=== PATIENT | male | born 1940 | race Caucasian/White ===

== ENCOUNTER 2023-01-07 01:12 | Inpatient (IN) | payer MEDICARE, SELFPAY ==
--- NOTE | ~2023-01-07 | XR_ITS ---
XR hip LT 1V 01/07/2023 19:02 Indication: Status post recent ORIF left hip. Abnormal alignment of the left lower extremity Procedure: AP portable view of the left hip Comparison: No prior studies for comparison. Findings: There is a comminuted proximal left femoral fracture extending from the lesser trochanter o bliquely and inferiorly. This fracture is transfixed by an intramedullary dieter with a distal interlock ing screw and 2 dynamic compression screws transfixing the left femoral neck. Impression: 1: Comminuted mildly displaced proximal left femoral fracture transfixed by 2 dynamic compression scr ews and an intramedullary dieter. Prior studies are available to assess for change in alignment post red uction. Reviewed, dictated and finalized at location A. Impression: 1: Comminuted mildly displaced proximal left femoral fracture transfixed by 2 d ynamic compression screws and an intramedullary dieter. Prior studies are availabl e to assess for change in alignment post reduction.
--- NOTE | ~2023-01-07 | CT_ITS ---
EXAMINATION: CT abdomen pelvis wo con DATE: 01/11/2023 06:43 INDICATION: Nausea and vomiting TECHNIQUE: Computed tomography (CT) of the abdomen and pelvis was performed without intravenous contr ast. The dose-length product (DLP) was 606.40 mGy-cm. Automated exposure control and iterative recons truction technique were employed. COMPARISON: None FINDINGS: There are minimal airspace opacities of the lung bases. There are pleural calcification of the left lower lobe, likely reflecting prior infection. Cardiomegaly is noted. There are bilateral gy necomastia. There is moderate distention of the stomach without focal transition point. A stone is pr esent in the nondistended gallbladder. The liver, spleen, pancreas, and adrenal glands are normal. Cy sts of the right kidney measure up to 1.5 cm. There is an 8 mm cyst of the left kidney lower pole. Th ere is irregular wall thickening of the mid transverse colon. No pathologically enlarged abdominal or pelvic lymph nodes are identified. There is no free intraperitoneal gas. A reservoir for a penile im plant is present in left pelvis. There is antegrade intramedullary dieter and interlocking intratrochant gracy screw fixation of the left femur traversing a comminuted left proximal femur fracture. There is mild lumbar spondylosis. IMPRESSION: 1. Moderate distention of the stomach without focal transition identified, likely ileus. 2. Irregular wall thickening of the transverse colon suspicious for colon cancer. Correlation with co lonoscopy is recommended. 3. Minimal airspace opacities of the lung bases, consistent with atelectasis versus pneumonia. Reviewed, dictated and finalized at location A. IMPRESSION: 1. Moderate distention of the stomach without focal transition identified, like ly ileus. 2. Irregular wall thickening of the transverse colon suspicious for colon cance r. Correlation with colonoscopy is recommended. 3. Minimal airspace opacities of the lung bases, consistent with atelectasis ve rsus pneumonia.
[2023-01-07 01:15] VITALS: BP 129/64; PULSE 78; RESP 18; TEMP 36.2; O2SAT 97
--- NOTE | 2023-01-07 01:53 | ADMGEN ---
This patient, Tonio Moreira, was admitted to 2nd Floor Room 207-2. Patient oriented to hospital policies and general routines including ID bracelet, bed and alarms, visiting hours, pain management, procedures, bathroom and other care routines, personal items, smoking policy, room service/diet, and visiting hours. Information on how to activate the Rapid Response Team has been discussed. Patient are encouraged to report perceived risks to care and to ask questions if they do not understand what they are told or what they should do.
[2023-01-07 01:57] VITALS: BMI 24.7
[2023-01-07] MEDS: ACETAMINOPHEN 500 MG TABLET BY MOUTH ×4 (03:47→20:48)
[2023-01-07 08:00] VITALS: BP 128/66; PULSE 61; RESP 16; TEMP 36; O2SAT 97
[2023-01-07] MEDS: ENOXAPARIN 40 MG/0.4 ML SYRINGE SUB-Q (09:02)
[2023-01-07] MEDS: ASPIRIN 81 MG ENTERIC TABLET PO (09:02)
[2023-01-07] MEDS: lisinopriL 20 MG TABLET PO (09:02)
[2023-01-07] MEDS: CHOLECALCIFEROL 1,000 UNITS TABLET 1000 UNITS PO (09:02)
[2023-01-07] MEDS: PANTOPRAZOLE SOD SESQUIHYDRATE 20 MG TAB PO (09:02)
[2023-01-07] MEDS: HYDROcodone/acetaminophen (*CRX) 5-325 MG TABLET 2 TAB PO ×2 (11:02→19:14)
--- NOTE | 2023-01-07 11:15 | PM.IMHP ---
H&P: HPI History of Present Illness Date/Time: 01/08/23 11:15 Chief Complaint: rehab/weakness Narrative: This is a 82-year-old male presented to outside hospital status post fall and was found to have a left intertrochanteric femur fracture. patient had repair on 12/30/2022. Patient has a past medical history of CAD status post CABG, hypertension, hyperlipidemia, GERD, dementia and hard of hearing. Patient admitted in swing bed for rehabilitation due to decreased balance decreased mobility in severe limited function endurant and/or mobility. patient does complain of pain to the left hip and yells out with movement. The patient denies SOB, CP, palpitation, extremity numbness, lightheadedness, dizziness, constipation, diarrhea, chills, or fever. Review of Systems Review of Systems: All systems reviewed & are unremarkable except as noted in HPI and below PMFSH Family History Family History (Updated 01/07/23 @ 01:56 by Alysia Nunez RN) Other Unknown family medical history Social History Social History Smoking status: Never smoker Alcohol intake: former Substance use: never Substance use type: does not use Lack of Transportation: No Lack of Food: Never True Current Housing: I Have Housing Concerned About Future Housing: No Difficulty Paying Gas/Electric Bills: No Difficulty Paying for Meds: No Currently Unemployed: No Education: Grade School Difficulty w/ Childcare or Family Care: No Spiritual care concerns: No Meds Home Medications and Allergies Home Medications Medication Instructions Recorded Confirmed Type Adult Low Dose Aspirin 81 mg PO DAILY 01/07/23 01/07/23 History acetaminophen 500 mg tablet See Rx Instructions .Route .COMPLEX 01/07/23 01/07/23 History (Acetaminophen Pain Relief) cholecalciferol (vitamin D3) 25 mcg BYMOUTH DAILY 01/07/23 01/07/23 History enoxaparin 40 mg/0.4 mL 40 mg subcut DAILY 01/07/23 01/07/23 History subcutaneous syringe (Lovenox) lisinopril 20 mg tablet (Zestril) 20 mg PO DAILY 01/07/23 01/07/23 History melatonin 3 mg BYMOUTH HS 01/07/23 01/07/23 History nitroglycerin 0.4 mg PO PRN 01/07/23 01/07/23 History simvastatin 20 mg tablet (Zocor) 40 mg PO HS 01/07/23 01/07/23 History Allergies Allergy/AdvReac Type Severity Reaction Status Date / Time Sulfa (Sulfonamide Allergy Intermediate Urticaria Verified 01/07/23 01:56 Antibiotics) Vital Signs Vital Signs - 24 hr 01/07/23 16:00 01/08/23 00:00 01/08/23 08:00 Temperature 36.4 C 36.3 C L 36.6 C Pulse Rate 79 74 171 H Respiratory Rate 16 16 Blood Pressure 146/65 H 133/59 L 118/70 Pulse Oximetry 97 98 100 Oxygen Delivery Room Air Room Air Room Air Exam Narrative: GENERAL: elderly gentleman in no apparent distress. HEAD: normocephalic, atraumatic. EYES: PERRL. Sclera clear/white. Vision is grossly intact. EARS: External ears normal, auditory canals clear and without drainage, TMs normal without perforation. Hearing grossly intact. NOSE: External nose normal with no obvious nasal discharge, nares without redness, no rhinorrhea. THROAT: Mucous membranes moist, posterior pharynx clear. NECK: Neck supple, non-tender without lymphadenopathy, masses or thyromegaly. CARDIOVASCULAR: Regular rate and rhythm without murmurs, gallops, or rubs. RESPIRATORY: Clear to auscultation. Breath sounds equal bilaterally. No wheezes, rales, or rhonchi. GASTROINTESTINAL: Abdomen soft, non-tender, nondistended. Bowel sounds are active. No hepato-splenomegaly, or palpable masses. No guarding. SKIN: Surgical sites to left thigh and hip area surgical site intact with sutures in place and eyelid covering site no signs and symptoms of infection noted , multiple scabbed over areas to the left leg. ulcer to the buttocks area refer to pictures NEURO: awake, alert, and oriented to person, There were no obvious focal neurologic abnormalities. EXTREMITIES: Normal range of motion. No edema. No calf tenderne
[2023-01-07 16:00] VITALS: BP 146/65; PULSE 79; RESP 16; TEMP 36.4; O2SAT 97
[2023-01-07] MEDS: MELATONIN 3 MG TABLET PO (20:47)
[2023-01-07] MEDS: SIMVASTATIN 10 MG TABLET 40 MG PO (20:47)
--- NOTE | 2023-01-07 22:39 | PC.NURSE ---
triangle pillow applied to interior left leg to help with internal rotation, boot on, call light on lap
[2023-01-08] VITALS: BP 133/59; PULSE 74; RESP 16; TEMP 36.3; O2SAT 98
[2023-01-08] MEDS: ACETAMINOPHEN 500 MG TABLET BY MOUTH ×6 (00:26→20:41)
[2023-01-08 08:00] VITALS: BP 118/70; PULSE 171; TEMP 36.6; O2SAT 100
[2023-01-08] MEDS: PANTOPRAZOLE SOD SESQUIHYDRATE 20 MG TAB PO (08:40)
[2023-01-08] MEDS: lisinopriL 20 MG TABLET PO (08:41)
[2023-01-08] MEDS: CHOLECALCIFEROL 1,000 UNITS TABLET 1000 UNITS PO (08:41)
[2023-01-08] MEDS: ENOXAPARIN 40 MG/0.4 ML SYRINGE SUB-Q (08:41)
[2023-01-08] MEDS: ASPIRIN 81 MG ENTERIC TABLET PO (08:41)
[2023-01-08] MEDS: traMADol HCL (*CRX) 50 MG TABLET PO (11:14)
[2023-01-08] MEDS: oxyCODONE HCL (*CRX) 10 MG TAB SR 12HR PO ×2 (13:02→20:41)
[2023-01-08 16:00] VITALS: BP 125/75; PULSE 79; RESP 18; TEMP 36.4; O2SAT 96
[2023-01-08 20:00] VITALS: PULSE 79; RESP 18; O2SAT 96
[2023-01-08] MEDS: SIMVASTATIN 10 MG TABLET 40 MG PO (20:40)
[2023-01-08] MEDS: MELATONIN 3 MG TABLET PO (20:40)
[2023-01-09] VITALS: BP 128/59; PULSE 77; RESP 16; TEMP 36.4; O2SAT 99
[2023-01-09] MEDS: ACETAMINOPHEN 500 MG TABLET BY MOUTH ×6 (00:21→20:43)
[2023-01-09] MEDS: HYDROcodone/acetaminophen (*CRX) 5-325 MG TABLET 2 TAB PO (00:21)
[2023-01-09 08:00] VITALS: BP 138/64; PULSE 82; RESP 18; TEMP 36.6; O2SAT 97
[2023-01-09] MEDS: lisinopriL 20 MG TABLET PO (08:48)
[2023-01-09] MEDS: ENOXAPARIN 40 MG/0.4 ML SYRINGE SUB-Q (08:48)
[2023-01-09] MEDS: ASPIRIN 81 MG ENTERIC TABLET PO (08:49)
[2023-01-09] MEDS: PANTOPRAZOLE SOD SESQUIHYDRATE 20 MG TAB PO (08:49)
[2023-01-09] MEDS: oxyCODONE HCL (*CRX) 10 MG TAB SR 12HR PO ×2 (08:49→20:43)
[2023-01-09] MEDS: CHOLECALCIFEROL 1,000 UNITS TABLET 1000 UNITS PO (08:49)
[2023-01-09 09:55] LABS: Hematocrit 27.4 % (37.0-46.0); Hemoglobin 8.6 g/dL (12.4-15.3); Immature Platelet Fraction Pct 2.3 % (1.0-7.0); Mean Corpuscular HGB Conc 31.4 g/dL (32.0-36.0); Mean Corpuscular Hemoglobin 29.5 pg (27.0-31.0); Mean Corpuscular Volume 93.8 fL (78.0-102.0); Mean Platelet Volume 9.9 fl (8.7-11.0); Platelet Count Result 562 K/mm3 (150-420); Red Blood Count 2.92 M/mm3 (4.70-6.10); Red Cell Distribution Width 15.4 % (11.6-14.4)
[2023-01-09 10:10] LABS: Alanine Aminotransferase 29 U/L (16-63); Albumin Level 2.1 g/dL (3.4-5.0); Alkaline Phosphatase 114 U/L (46-116); Anion Gap 5 mmol/L (8-16); Aspartate Amino Transferase 25 U/L (15-37); Blood Urea Nitrogen 28 mg/dL (7-18); Calcium 8.4 mg/dL (8.5-10.1); Carbon Dioxide 29 mmol/L (21-32); Chloride 100 mmol/L (98-108); Estimated CRCL calculation 57 ml/min; Estimated Glomerular Filt Rate > 60; Glucose 155 mg/dL (70-99); Osmolality Calculated 286 mOsm/kg (285-295); Potassium 4.8 mmol/L (3.5-5.1); Sodium 134 mmol/L (136-145); Total Protein 6.1 g/dL (6.4-8.2)
[2023-01-09 16:00] VITALS: BP 132/59; PULSE 79; RESP 18; TEMP 36.5; O2SAT 100
[2023-01-09] MEDS: MELATONIN 3 MG TABLET PO (20:43)
[2023-01-09] MEDS: SIMVASTATIN 10 MG TABLET 40 MG PO (20:43)
[2023-01-09 23:06] VITALS: BP 142/63; PULSE 84; RESP 16; TEMP 36.2; O2SAT 100
[2023-01-10] MEDS: ACETAMINOPHEN 500 MG TABLET BY MOUTH ×5 (00:13→18:00)
[2023-01-10 08:00] VITALS: BP 132/64; PULSE 88; RESP 18; TEMP 36.3; O2SAT 100
[2023-01-10] MEDS: lisinopriL 20 MG TABLET PO (09:33)
[2023-01-10] MEDS: PANTOPRAZOLE SOD SESQUIHYDRATE 20 MG TAB PO (09:33)
[2023-01-10] MEDS: CHOLECALCIFEROL 1,000 UNITS TABLET 1000 UNITS PO (09:33)
[2023-01-10] MEDS: oxyCODONE HCL (*CRX) 10 MG TAB SR 12HR PO (09:33)
[2023-01-10] MEDS: ASPIRIN 81 MG ENTERIC TABLET PO (09:33)
[2023-01-10] MEDS: ENOXAPARIN 40 MG/0.4 ML SYRINGE SUB-Q (09:34)
--- NOTE | 2023-01-10 11:45 | PC.NURSE ---
Report given to Charlette Stauffer RN for transfer of primary care nurse.
[2023-01-10 16:40] VITALS: BP 144/74; PULSE 80; RESP 18; TEMP 36.4; O2SAT 98
[2023-01-10] MEDS: ONDANSETRON HCL ODT 4 MG TABLET PO (20:30)
[2023-01-10 20:40] VITALS: BP 149/78; PULSE 80; RESP 20; TEMP 36.6; O2SAT 99
--- NOTE | 2023-01-10 20:40 | PC.NURSE ---
Nurse went to patient to give his HS meds and pt refused them saying he's nauseous. PRN Zofran given. 30 seconds later pt had 2 emesis, totaling 200ml, of mostly phlegm and a few chunks of food in it and light brown in color.
--- NOTE | 2023-01-10 21:20 | PC.NURSE ---
Patient has had 2 additional emesis of 100ml each, yellow/klein in color with a lot of phlegm in it.
[2023-01-10] MEDS: PROMETHAZINE HCL 25 MG SUPP.RECT RECTAL (21:47)
--- NOTE | 2023-01-10 23:31 | PC.NURSE ---
This nurse has asked patient multiple times if his stomach felt good enough to take his HS meds and he continues to say no. Meds returned to Pyxis except for Tylenol, which will be kept out for his next dose. Patient has not vomited any more.
--- NOTE | 2023-01-10 23:37 | PC.NURSE ---
Patient had another emesis of 250ml, yellow in color with lg amount of phlegm in it.
[2023-01-11] VITALS: BP 145/77; PULSE 100; RESP 20; TEMP 36.7; O2SAT 93
--- NOTE | 2023-01-11 01:20 | PC.NURSE ---
Patient has had no further emesis. Patient resting but refused 0100 Tylenol saying his stomach is still upset.
[2023-01-11] MEDS: PROMETHAZINE HCL 25 MG SUPP.RECT RECTAL (02:23)
--- NOTE | 2023-01-11 02:30 | PC.NURSE ---
Patient had another 50ml emesis, yellow with phlegm. Patient given another Promethazine suppository. Tolerated well. Call light in reach.
--- NOTE | 2023-01-11 02:35 | PC.NURSE ---
Patient has not had pain med since 1699 but denies pain @ this time.
--- NOTE | 2023-01-11 06:18 | PC.NURSE ---
Patient to radiology for CT of abd w/o contrast.
--- NOTE | 2023-01-11 06:21 | PC.NURSE ---
Patient has had no further emesis.
--- NOTE | 2023-01-11 06:39 | PC.NURSE ---
Patient returned from radiology. Tolerated test well.
[2023-01-11 08:00] VITALS: BP 136/62; PULSE 87; RESP 14; TEMP 36.4; O2SAT 95
[2023-01-11] MEDS: ONDANSETRON HCL ODT 4 MG TABLET PO (08:02)
[2023-01-11] MEDS: LORazepam INJ (*CRX) 2 MG/ML VIAL 1 MG IV PUSH (10:06)
--- NOTE | 2023-01-11 10:32 | PM.DS ---
DS: Admitting Diagnosis Discharge Date 01/11/23 Admitting Diagnosis rehab weakness DS: Discharge Diagnosis Discharge Diagnosis (1) Weakness: Code(s): R53.1 - Weakness Status: Acute Assessment and Plan: ? Exhibit tolerance during physical activity as evidenced by a normal fluctuation of vital signs during physical activity. ? Patient will be ability to perform required activities of daily living. ? Provide appropriate nutrition for healing and strength. ? Use appropriate to prevent falls. ? Continue physical therapy/occupational therapy. (2) HTN (hypertension): Code(s): I10 - Essential (primary) hypertension Status: Acute Assessment and Plan: continue home medication vital signs as ordered will adjust medication as needed (3) CAD (coronary artery disease): Code(s): I25.10 - Atherosclerotic heart disease of viejas coronary artery without angina pectoris Status: Acute Assessment and Plan: status post CABG continue aspirin and simvastatin (4) BPH (benign prostatic hyperplasia): Code(s): N40.0 - Benign prostatic hyperplasia without lower urinary tract symptoms Status: Acute (5) Intertrochanteric fracture of left femur: Code(s): S72.142A - Displaced intertrochanteric fracture of left femur, initial encounter for closed fracture Status: Acute Assessment and Plan: s/p repair contniue pain controll continue pt/ot (6) Ileus: Code(s): K56.7 - Ileus, unspecified Status: Acute Assessment and Plan: transfer to [place] for higher level care and consult with surgery (7) Abnormal CT scan, gastrointestinal tract: Code(s): R93.3 - Abnormal findings on diagnostic imaging of other parts of digestive tract Status: Acute Assessment and Plan: transfer to [facility] for higher level care and consult with GI DS: Summary Hospital Course Reason for hospitalization: rehab Hospital Course: ?This is a 82-year-old male presented to outside hospital status post fall and was found to have a left intertrochanteric femur fracture. patient had repair on 12/30/2022.? Patient has a past medical history of CAD status post CABG, hypertension, hyperlipidemia, GERD, dementia and hard of hearing. Patient admitted in swing bed for rehabilitation due to decreased balance decreased mobility in severe limited function endurant and/or mobility. receive that patient had nausea vomiting throughout the night with no relief with anti emesis medication CT of the abdomen indicate a possible ileus and a mass in the colon which was suspicious of cancer. patient transferred to [facility] for a consult with GI and surgery Time Spent with Patient Time attestation: Total time spent providing and/or coordinating discharge services: Exam Narrative: GENERAL: elderly gentleman in no apparent distress. HEAD: normocephalic, atraumatic. EYES: PERRL. Sclera clear/white. Vision is grossly intact. EARS: External ears normal, auditory canals clear and without drainage, TMs normal without perforation. Hearing grossly intact. NOSE: External nose normal with no obvious nasal discharge, nares without redness, no rhinorrhea. THROAT: Mucous membranes moist, posterior pharynx clear. NECK: Neck supple, non-tender without lymphadenopathy, masses or thyromegaly. CARDIOVASCULAR: Regular rate and rhythm without murmurs, gallops, or rubs. RESPIRATORY: Clear to auscultation. Breath sounds equal bilaterally. No wheezes, rales, or rhonchi. GASTROINTESTINAL: Abdomen soft, non-tender, nondistended. Bowel sounds are active. No hepato-splenomegaly, or palpable masses. No guarding. SKIN: Surgical sites to left thigh and hip area surgical site intact with sutures in place and eyelid covering site no signs and symptoms of infection noted , multiple scabbed over areas to the left leg. ulcer to the buttocks area refer to pictures NEURO: awake, alert, a
--- NOTE | 2023-01-11 10:42 | PC.NURSE ---
RN spoke with Davon Moreira regarding the pt's need to transfer to a higher level of care. Pt has developed an Ileus. Permission was granted.
--- NOTE | 2023-01-11 10:49 | PC.NURSE ---
Pt refuses NG tube at this time.
--- NOTE | 2023-01-11 11:00 | PC.NURSE ---
Patient transferring to [facility] due to ileus/Gastro consult. Accepted by dr. Sheriff. Contacted [facility], no rigs available for transfer. [facility] contacted. Transfer paged out, waiting for ambulance to arrive.
[2023-01-11 11:20] LABS: Hematocrit 26.7 % (37.0-46.0); Hemoglobin 8.7 g/dL (12.4-15.3); Mean Corpuscular HGB Conc 32.6 g/dL (32.0-36.0); Mean Corpuscular Hemoglobin 29.9 pg (27.0-31.0); Mean Corpuscular Volume 91.8 fL (78.0-102.0); Mean Platelet Volume 9.3 fl (8.7-11.0); Platelet Count Result 514 K/mm3 (150-420); Red Blood Count 2.91 M/mm3 (4.70-6.10); Red Cell Distribution Width 15.7 % (11.6-14.4)
[2023-01-11 11:28] LABS: White Blood Count 22.7 K/mm3 (4.8-10.8)
[2023-01-11 11:42] LABS: Alanine Aminotransferase 30 U/L (16-63); Albumin Level 2.1 g/dL (3.4-5.0); Alkaline Phosphatase 132 U/L (46-116); Anion Gap 5 mmol/L (8-16); Aspartate Amino Transferase 26 U/L (15-37); Bilirubin,Total 1.2 mg/dL (0.00-1.00); Blood Urea Nitrogen 34 mg/dL (7-18); Calcium 8.4 mg/dL (8.5-10.1); Carbon Dioxide 32 mmol/L (21-32); Chloride 100 mmol/L (98-108); Estimated CRCL calculation 63 ml/min; Estimated Glomerular Filt Rate > 60; Glucose 147 mg/dL (70-99); Osmolality Calculated 294 mOsm/kg (285-295); Potassium 4.5 mmol/L (3.5-5.1); Sodium 137 mmol/L (136-145); Total Protein 6.1 g/dL (6.4-8.2)
--- NOTE | 2023-01-11 11:44 | PC.NURSE ---
Report called to [facility]. Report given to Suellen BROOKS. Pt transported with all his belongings by [facility] ambulance.
== END 2023-01-11 11:30 | disposition short-term general hospital (02) | DRG 560 ==
PROVIDERS: Nurse Practitioner; Admitting Provider Internal Medicine; Visit Provider Internal Medicine
DX: S72.142D Displaced intertrochanteric fracture of left femur, subsequent encounter for closed fracture with routine healing (principal); K56.7 Ileus, unspecified; W19.XXXD Unspecified fall, subsequent encounter; I25.10 Atherosclerotic heart disease of native coronary artery without angina pectoris; I10 Essential (primary) hypertension; E78.5 Hyperlipidemia, unspecified; K21.9 Gastro-esophageal reflux disease without esophagitis; N40.0 Benign prostatic hyperplasia without lower urinary tract symptoms; R93.3 Abnormal findings on diagnostic imaging of other parts of digestive tract; F03.90 Unspecified dementia, unspecified severity, without behavioral disturbance, psychotic disturbance, mood disturbance, and anxiety; Z95.1 Presence of aortocoronary bypass graft; Z79.82 Long term (current) use of aspirin
CPT/HCPCS: 36415; 73501; 74176; 80053; 85027; 85055; 97110; 97162; 97165; 97530; 97535; A9270; J1650; J2060

== ENCOUNTER 2023-01-11 12:06 | Observation (INO) | payer MEDICARE, SELFPAY ==
--- NOTE | ~2023-01-11 | NM_ITS ---
EXAM: NM gastric emptying study DATE: 01/15/2023 14:48 INDICATION: Gastric retention. TECHNIQUE: A gastric emptying study was performed using the methodology of Prabhakar LIRA, et al. J Nucl Med 2007; 48:568-572. The patient was given a meal consisting of 2 scrambled eggs labeled with 0.972 mCi Tc-99m sulfur colloid, 2 slices of toast, two packages of jam, and approximately 120 mL of water . Simultaneous anterior and posterior 1-min images of the abdomen were obtained with the patient supi ne at multiple time points over a total period of 4 hours. The geometric mean of anterior and posteri or views was determined, and the percentage retention was calculated for each time point. COMPARISON: CT abdomen pelvis 01/11/2023 FINDINGS: Gastric retention of the radiotracer-labeled meal was 70% and 4% at the 90 minute and 4-ho ur time points, respectively. With this technique, apparent rapid gastric emptying is suggested by <3 0% gastric retention at 1 hour. Delayed gastric emptying is defined by gastric retention of >90% at 1 hour, >60% retention at 2 hours, or >10% retention at 4 hours. IMPRESSION: 1. Normal gastric emptying. Reviewed, dictated and finalized at location E. IMPRESSION: 1. Normal gastric emptying.
--- NOTE | ~2023-01-11 | XR_ITS ---
MODIFIED ESOPHAGRAM HISTORY: Dysphagia. TECHNIQUE: Modified barium esophagram was performed on 01/13/2023. I administered fluoroscopy and perf ormed the exam with speech pathologist. Patient was seated for lateral fluoroscopic imaging for jesus stion of thin liquids, pudding, solids and quantified amounts, followed by thin liquids in uncontroll ed amounts. This was recorded on tape. A single fluoroscopic spot image was also recorded. The DAP fo r this procedure was 1.129 Gycm2. The amount of fluoroscopy time used during this procedure was 1.8 m inutes. FINDINGS: Oral stage: Adequate function. Pharyngeal stage: Pharyngeal dysphagia with reduced tongue base retraction, laryngeal elevation and a bduction resulting in both vallecular and piriform sinus residue. There was laryngeal penetration and aspiration with uncontrolled thin liquids with a straw which elicited a cough reflex. Cervical/esophageal stage: Adequate function. IMPRESSION: Pharyngeal dysphagia with laryngeal penetration and aspiration with uncontrolled thin liq uids. Please correlate with speech pathologist findings and specific feeding recommendations. Reviewed, dictated and finalized at location A. IMPRESSION: Pharyngeal dysphagia with laryngeal penetration and aspiration with uncontrolled thin liquids. Please correlate with speech pathologist findings and specific feeding recommendations.
--- NOTE | ~2023-01-11 | XR_ITS ---
EXAMINATION: XR chest 1V portable DATE: 01/11/2023 19:55 INDICATION: Cough. TECHNIQUE: A single frontal view of the chest was obtained. COMPARISON: CT abdomen and pelvis 01/11/2023 FINDINGS: There are airspace opacities in the lower lung zones, left worse than right. No pleural eff usion or pneumothorax. The heart size is normal. Median sternotomy wires and mediastinal surgical cli ps are seen, likely from prior coronary artery bypass grafting. There are multiple old healed right r ib fractures. IMPRESSION: 1. Airspace opacities in the lower lung zones, left worse than right, consistent with atelectasis/sca rring versus pneumonia. Reviewed, dictated and finalized at location A. IMPRESSION: 1. Airspace opacities in the lower lung zones, left worse than right, consisten t with atelectasis/scarring versus pneumonia.
--- NOTE | 2023-01-11 12:18 | ADMGEN ---
This patient, NICOLAS MEAD, was admitted to 3 [facility] Surg Room 315-02. Patient/family oriented to hospital policies and general routines including ID bracelet, bed and alarms, visiting hours, pain management, procedures, bathroom and other care routines, personal items, smoking policy, room service/diet, and visiting hours. Information on how to activate the Rapid Response Team has been discussed. Patient/Family are encouraged to report perceived risks to care and to ask questions if they do not understand what they are told or what they should do.
--- NOTE | 2023-01-11 12:45 | PM.IMHP ---
H&P: HPI History of Present Illness Date/Time: 01/11/23 12:45 Chief Complaint: Ileus. Narrative: This is an 82-year-old male with history of dementia, coronary artery disease, hypertension, and hyperlipidemia who is being directly admitted to the medical floor from a swing bed at the [facility] for evaluation after he was found to have an ileus on CT. He seems to have pretty significant short-term memory loss and he has not a reliable historian and as such some of the following history is supplemented via a review of his electronic medical records as well as discussions with his grandson, Davon, who is at bedside with the patient's permission. The patient lives in his own home with his dog Neal in [facility]. He ambulates with what sounds like a Rollator and grandson mentions that he tends to keep it far out in front of him and occasionally loses his balance. On December 29 he had a fall and sustained a left inter trochanteric hip fracture which was repaired at [facility] the following day. He was discharged to a swing bed in [place] for rehab. Last evening he began complaining of nausea and he had multiple episodes of emesis overnight, receiving no relief with antiemetics. CT of the abdomen/pelvis showed moderate distention of the stomach without focal transition identified, likely an ileus. Incidentally an irregular wall thickening of the transverse colon was noted to be suspicious for colon cancer and transfer was initiated for GI consultation for possible colonoscopy. At the time my evaluation he does not remember being up most of the night with nausea and vomiting and he has no complaints of abdominal discomfort or nausea at this time. He has not vomited since arrival to [place]. He also denies vertigo, lightheadedness, dizziness, fever, chills, sweats, cold and flu symptoms, chest and pleuritic pain, sensations of racing heart, palpitations, shortness of breath, diarrhea, and dysuria. He denies hematochezia and melena. Review of Systems Review of Systems: Twelve systems were reviewed but are limited due to his significant short-term memory loss. He had no complaints and stated no to every question asked except as detailed in HPI. [facility] Past Medical History Medical History (Updated 01/11/23 @ 19:45 by Kaila Toussaint PA-C) Benign prostatic hyperplasia Coronary artery disease Dementia Gastroesophageal reflux disease Hyperlipidemia Hypertension Urinary incontinence Surgical History Surgical History (Updated 01/11/23 @ 12:52 by Kaila Toussaint PA-C) History of appendectomy History of coronary artery bypass graft History of open reduction and internal fixation (ORIF) procedure (12/30/22) Repair left hip fracture. Family History Family History (Updated 01/11/23 @ 19:34 by Kaila Toussaint PA-C) Son Cancer Social History Social History (Updated 01/11/23 @ 19:35 by Kaila Toussaint PA-C) Social History: Surrogate medical decision maker: radha Combs. Code status: Full code. Smoking packs per day: 1 Smoking cigarettes per day: 20.0 Years smoked: 30 Smoking pack-years: 30.00 Smoking status: Never smoker Alcohol intake: never Substance use: never Substance use type: does not use Lack of Transportation: No Lack of Food: Never True Current Housing: I Have Housing Concerned About Future Housing: No Difficulty Paying Gas/Electric Bills: No Difficulty Paying for Meds: No Currently Unemployed: No Education: High School Diploma/GED Difficulty w/ Childcare or Family Care: No Additional living arrangements comments: Lives in [place] with his dog, Neal. 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 Spiritual care concerns: No Meds Home Medications and Allergies Home Medications Medication Instructions Recorded Confirmed Type Adult Low Dose Aspirin 81 mg PO DAILY 01/07/23
[2023-01-11 12:46] VITALS: BP 127/50; PULSE 96; RESP 24; TEMP 36.3; O2SAT 97; BMI 26.2
[2023-01-11 13:01] VITALS: O2SAT 95
[2023-01-11 13:23] LABS: Basophils Absolute Auto 0.1 K/mm3 (0.0-0.1); Basophils Percent Auto 0.3 % (0.2-1.2); Hemoglobin 8.8 g/dL (14.0-18.0); Immature Granulocyte Absolute 0.15 K/mm3 (0.00-0.031); Immature Granulocyte Percent A 0.7 % (0-0.5); Lymphocytes Absolute Auto 1.42 K/mm3 (0.9-3.2); Lymphocytes Percent Auto 6.3 % (18.3-44.2); Mean Corpuscular HGB Conc 31.4 g/dl (32-36); Mean Corpuscular Hemoglobin 29.6 pg (26-34); Mean Corpuscular Volume 94.3 fl (80-100); Mean Platelet Volume 9.8 fl (7.4-10.4); Monocytes Absolute Auto 0.7 K/mm3 (0.1-0.6); Neutrophils Absolute Auto 20.1 K/mm3 (1.3-6.7); Neutrophils Percent Auto 89.7 % (45.5-73.1); Platelet Count Result 556 k/mm3 (150-375); Red Blood Count 2.97 M/mm3 (4.6-6.20); White Blood Count 22.4 K/mm3 (4.5-10.0)
[2023-01-11 13:45] LABS: Lactic Acid Reflex 1.7 mmol/L (0.7-2.0)
[2023-01-11 13:58] LABS: Alanine Aminotransferase 32 U/L (6-50); Albumin Level 2.9 g/dL (3.5-5.1); Alkaline Phosphatase 132 U/L (38-126); Anion Gap 3 mmol/L (8-16); Aspartate Amino Transferase 35 U/L (17-59); Bilirubin,Total 1.4 mg/dL (0.2-1.3); Blood Urea Nitrogen 35 mg/dL (9-20); Carbon Dioxide 30 mmol/L (22-30); Chloride 99 mmol/L (98-107); Glucose 148 mg/dL (65-110); Potassium 4.5 mmol/L (3.4-5.0); Sodium 132 mmol/L (137-145)
[2023-01-11 14:00] VITALS: BP 136/52; PULSE 89; RESP 20; TEMP 36.1; O2SAT 96
[2023-01-11 14:07] LABS: Estimated CRCL calculation 80 ml/min; Estimated Glomerular Filt Rate > 60
[2023-01-11 15:01] LABS: CRP 5.8 mg/dL (<1.0)
[2023-01-11 15:15] LABS: Procalcitonin 0.1 ng/mL
[2023-01-11] MEDS: ENOXAPARIN 40 MG/0.4 ML SYRINGE SUB-Q (15:33)
[2023-01-11] MEDS: PANTOPRAZOLE SODIUM IV 40 MG VIAL IV PUSH (15:33)
[2023-01-11 18:59] VITALS: BP 135/58; PULSE 87; RESP 16; TEMP 37; O2SAT 93
[2023-01-11 20:17] LABS: Iron 21 ug/dL (49-181)
[2023-01-11 20:26] LABS: Percent Iron Saturation 8 % (20-50)
[2023-01-11 20:50] LABS: Thyroid Stimulating Hormone Reflex 0.534 uIU/mL (0.465-4.68)
[2023-01-11 21:12] VITALS: BP 127/55; PULSE 82; RESP 16; TEMP 36.8; O2SAT 95
[2023-01-11] MEDS: SIMVASTATIN 20 MG TABLET 40 MG PO (21:54)
[2023-01-11] MEDS: MELATONIN 3 MG TABLET PO (21:54)
[2023-01-12] VITALS (7 sets, daily range): BP systolic 124–160; BP diastolic 49–74; PULSE 64–77; RESP 15–32; TEMP 35.7–36.7; O2SAT 97–100; BMI 26.6
--- NOTE | 2023-01-12 06:41 | WPDGICN ---
Assessment and Plan Assessment and plan (1) Nausea and vomiting: Code(s): R11.2 - Nausea with vomiting, unspecified Status: Acute Assessment and Plan: reportedly he had several episodes of nausea and vomiting 2 days ago, prior to his transfer here yesterday. He does not recall that. He was given a trial of liquids last night but has been otherwise NPO. CT scan shows a distended stomach. (2) Colon wall thickening: Code(s): K63.9 - Disease of intestine, unspecified Status: Acute Assessment and Plan: Focal thickening of the transverse colon seen on CT scan could be neoplasm. It could also be an artifact. Would be unusual spot for ischemic colitis. (3) Abnormal CT scan, gastrointestinal tract: Code(s): R93.3 - Abnormal findings on diagnostic imaging of other parts of digestive tract Status: Acute (4) Dementia: Code(s): F03.90 - Unspecified dementia, unspecified severity, without behavioral disturbance, psychotic disturbance, mood disturbance, and anxiety Status: Acute Plan Will schedule for EGD this morning. We then will try liquids and if he can keep liquids down can try a prep for colonoscopy to investigate his colon. GI Consult Note Consult date/time: 01/12/23 06:41 HPI: NICOLAS MEAD is a 82 year old male who was admitted here on a transfer from the hospital in [place] with nausea, vomiting and abnormality on CT scan. He is a poor historian. He knows he is at the hospital but does not recall the vomiting. He denies abdominal pain at present. He cannot recall what he had last to eat. A CT scan showed distention of the stomach with about a focal transition and also irregularity the transverse colon suspicious for colon cancer. We have no records of prior colonoscopy. Review of Systems Review of Systems: All systems reviewed & are unremarkable except as noted in HPI and below PMFSH Past Medical History Medical History Benign prostatic hyperplasia Coronary artery disease Dementia Gastroesophageal reflux disease Hyperlipidemia Hypertension Urinary incontinence Surgical History Surgical History History of appendectomy History of coronary artery bypass graft History of open reduction and internal fixation (ORIF) procedure (12/30/22) Repair left hip fracture. Family History Family History Son Cancer Social History Social History Social History: Surrogate medical decision maker: Davon Peacock radha. Code status: Full code. Smoking packs per day: 1 Smoking cigarettes per day: 20.0 Years smoked: 30 Smoking pack-years: 30.00 Smoking status: Never smoker Alcohol intake: never Substance use: never Substance use type: does not use Lack of Transportation: No Lack of Food: Never True Current Housing: I Have Housing Concerned About Future Housing: No Difficulty Paying Gas/Electric Bills: No Difficulty Paying for Meds: No Currently Unemployed: No Education: High School Diploma/GED Difficulty w/ Childcare or Family Care: No Additional living arrangements comments: Lives in [facility] with his dogNeal. 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 Spiritual care concerns: No Meds Home Medications and Allergies Home Medications Medication Instructions Recorded Confirmed Type Adult Low Dose Aspirin 81 mg PO DAILY 01/07/23 01/11/23 History acetaminophen 500 mg tablet 500 mg PO Q4H 01/07/23 01/11/23 History (Acetaminophen Pain Relief) cholecalciferol (vitamin D3) 25 mcg PO DAILY 01/07/23 01/11/23 History enoxaparin 40 mg/0.4 mL 40 mg subcut DAILY 01/07/23 01/11/23 History subcutaneous syringe (Lovenox) lisinopril 20 mg tablet (Zestril) 20
--- NOTE | 2023-01-12 08:21 | PC.NURSE ---
This nurse spoke with CECILIA Pryor in GI lab regarding patients morning medications. Advised to hold anticoagulants prior to procedure today. This nurse did not administer the 81mg aspirin nor the Lovenox due this am. Ok per Roya in GI to give Lisinopril.
[2023-01-12] MEDS: lisinopriL 20 MG TABLET PO (08:29)
[2023-01-12] MEDS: PANTOPRAZOLE SODIUM IV 40 MG VIAL IV PUSH (08:29)
[2023-01-12 09:55] LABS: Basophils Percent Auto 0.2 % (0.2-1.2); Eosinophils Absolute Auto 0.1 K/mm3 (0-0.3); Eosinophils Percent Auto 0.5 % (0-4.4); Hematocrit 25.5 % (42.0-52.0); Hemoglobin 8.1 g/dL (14.0-18.0); Immature Granulocyte Absolute 0.05 K/mm3 (0.00-0.031); Immature Granulocyte Percent A 0.4 % (0-0.5); Lymphocytes Absolute Auto 1.53 K/mm3 (0.9-3.2); Lymphocytes Percent Auto 11.9 % (18.3-44.2); Mean Corpuscular HGB Conc 31.8 g/dl (32-36); Mean Corpuscular Hemoglobin 30.3 pg (26-34); Mean Corpuscular Volume 95.5 fl (80-100); Monocytes Absolute Auto 0.6 K/mm3 (0.1-0.6); Monocytes Percent Auto 4.3 % (2.6-8.5); Neutrophils Absolute Auto 10.7 K/mm3 (1.3-6.7); Neutrophils Percent Auto 82.7 % (45.5-73.1); Platelet Count Result 416 k/mm3 (150-375); Red Blood Count 2.67 M/mm3 (4.6-6.20); Red Cell Distribution Width 15.6 % (11.5-14.5); White Blood Count 12.9 K/mm3 (4.5-10.0)
[2023-01-12 10:10] LABS: Alanine Aminotransferase 24 U/L (6-50); Albumin Level 2.7 g/dL (3.5-5.1); Alkaline Phosphatase 113 U/L (38-126); Anion Gap -1 mmol/L (8-16); Aspartate Amino Transferase 26 U/L (17-59); Bilirubin,Total 1.3 mg/dL (0.2-1.3); Blood Urea Nitrogen 30 mg/dL (9-20); Calcium 8.3 mg/dL (8.4-10.2); Carbon Dioxide 34 mmol/L (22-30); Chloride 101 mmol/L (98-107); Estimated CRCL calculation 80 ml/min; Estimated Glomerular Filt Rate > 60; Glucose 101 mg/dL (65-110); Potassium 4.8 mmol/L (3.4-5.0); Sodium 134 mmol/L (137-145)
[2023-01-12] MEDS: LACTATED RINGERS 1,000 ML 75 ML IV CONT (10:21)
[2023-01-12] MEDS: FERROUS SULFATE 324 MG TABLET PO (10:26)
--- NOTE | 2023-01-12 11:35 | PM.IMPN ---
Progress Note: A&P Assessment and Plan (1) Ileus: Code(s): K56.7 - Ileus, unspecified Status: Acute Assessment and Plan: The patient had significant nausea and multiple episodes of emesis prior to admission. CT the outside facility showed findings of an ileus. He has not had any episodes of vomiting since arrival to this facility and he is no longer nauseated. Abdominal exam is benign he has normoactive bowel sounds. Diet per GI. Ambulate with WBAT. (2) Colon wall thickening: Code(s): K63.9 - Disease of intestine, unspecified Status: Acute Assessment and Plan: CT scan shows irregular wall thickening of the transverse colon suspicious for colon cancer. He denied personal and family history of colon cancer, however, patient does have dementia. He denied blood in the stools. Weight has remained stable. Colitis seems unlikely by history. Dr. Stewart has been consulted and his input is appreciated. EGD planned for tomorrow 01/13. NPO after midnight. (3) Normocytic anemia: Code(s): D64.9 - Anemia, unspecified Status: Acute Assessment and Plan: Records reviewed from recent stay at [facility]. Hemoglobin on admission was 10.0 and was 8.0 discharge, likely due to blood loss from surgery. He seems to have a chronic anemia. Serum iron 21, sat 8%, TIBC 250, ferritin 299. B12 363, folate 6. May be early iron deficiency anemia secondary to recent surgery. FOBT pending. (4) Leukocytosis: Code(s): D72.829 - Elevated white blood cell count, unspecified Status: Acute Assessment and Plan: White blood cell count was 17.4 on admission [facility] and it has remained elevated, with neutrophil predominance. He does have a nonproductive cough and reports strong smelling urine though he gives no obvious history to suggest active infection. Chest x-ray without acute infection and UA pending. His wounds do not look grossly infected. Hold on antibiotics for now and monitor. WBC decreased 12 (5) Intertrochanteric fracture of left femur: Code(s): S72.142A - Displaced intertrochanteric fracture of left femur, initial encounter for closed fracture Status: Acute Assessment and Plan: Status post intramedullary dieter on 12/30/2022 at [facility]. Operative site looks good without evidence of infection. Continue PT/OT. (6) Coronary artery disease: Code(s): I25.10 - Atherosclerotic heart disease of [place] coronary artery without angina pectoris Status: Chronic Assessment and Plan: Status post CABG many years ago. No acute issues. Continue aspirin and statin. (7) Hypertension: Code(s): I10 - Essential (primary) hypertension Status: Chronic Assessment and Plan: Blood pressures were reviewed and they have been reasonable. Continue antihypertensives and monitor. (8) Dementia: Code(s): F03.90 - Unspecified dementia, unspecified severity, without behavioral disturbance, psychotic disturbance, mood disturbance, and anxiety Status: Chronic Assessment and Plan: Patient seems to have pretty significant short-term memory loss. No mention of delirium with recent hospitalization. Plan CODE STATUS: FULL CODE Discharge disposition: completed [facility] at [place]. PT/OT eval pending. Time Spent With Patient Time with patient: 25 - 35 minutes Subjective Date/time seen: 01/12/23 11:35 He reports some left hip pain. No abd pain, N/V. He does not recall his last BM. No emesis overnight. He denies flatus. Review of Systems Review of Systems: ROS unobtainable: Yes unobtainable due to mental status (Limited ROS) Exam Narrative: General: Well-developed, nontoxic-appearing older adult male in the semi-Eller position in bed. HEENT: Hard of hearing. PERRL, EOMI. Sclera anicteric. moist mucous membranes. Neck: Supple. No JVD or lymphadenopathy. Respiratory: Respirations are nonlabored. Oc
--- NOTE | 2023-01-12 13:57 | WPDANESEPPF ---
Anes - Initial Pre Proc Eval Procedure: Operation Date: 01/12/23 15:15 Proposed Procedures p Esophagogastroduodenoscopy - Howie Stewart MD Date/Time: 01/12/23 13:57 Surgeon: Shay Sheriff MD Pre Op Diagnosis: Ileus Patient Data Age: 82 Gender: M Height: 1.78 m Weight: 84.2 kg Last Vital Signs Temp 36.7 C 01/12/23 05:57 Pulse 64 01/12/23 05:57 Resp 16 01/12/23 05:57 BP 160/53 H 01/12/23 05:57 Pulse Ox 97 01/12/23 05:57 O2 Del Method Room Air 01/12/23 11:23 Allergies Allergy/AdvReac Type Severity Reaction Status Date / Time Sulfa (Sulfonamide Allergy Intermediate Urticaria Verified 01/07/23 01:56 Antibiotics) Home Medications Medication Instructions Recorded Confirmed Type Adult Low Dose Aspirin 81 mg PO DAILY 01/07/23 01/11/23 History acetaminophen 500 mg tablet 500 mg PO Q4H 01/07/23 01/11/23 History (Acetaminophen Pain Relief) cholecalciferol (vitamin D3) 25 mcg PO DAILY 01/07/23 01/11/23 History enoxaparin 40 mg/0.4 mL 40 mg subcut DAILY 01/07/23 01/11/23 History subcutaneous syringe (Lovenox) lisinopril 20 mg tablet (Zestril) 20 mg PO DAILY 01/07/23 01/11/23 History melatonin 3 mg BYMOUTH HS 01/07/23 01/11/23 History nitroglycerin 0.4 mg PO PRN 01/07/23 01/11/23 History simvastatin 20 mg tablet (Zocor) 40 mg PO HS 01/07/23 01/11/23 History Laboratory Tests 01/11/23 01/11/23 01/11/23 13:01 13:01 13:01 WBC RBC Hgb Hct MCV MCH MCHC RDW Plt Count MPV Immature Gran % (Auto) Neut % (Auto) Lymph % (Auto) [place] % (Auto) Eos % (Auto) Baso % (Auto) Lymph # (Auto) [place] # (Auto) Eos # (Auto) Baso # (Auto) Abs Immat Gran (auto) Absolute Neuts (auto) Absolute Nucleated RBC Nucleated RBC % Sodium 132 mmol/L L mmol/L (137-145) Potassium 4.5 mmol/L mmol/L (3.4-5.0) Chloride 99 mmol/L mmol/L (98-107) Carbon Dioxide 30 mmol/L mmol/L (22-30) Anion Gap 3 mmol/L L mmol/L (8-16) BUN 35 mg/dL H mg/dL (9-20) Creatinine 0.60 mg/dL L mg/dL (0.7-1.3) Estim Creat Clear Calc 80 ml/min ml/min Estimated GFR > 60 (59 - ) Glucose 148 mg/dL H mg/dL (65-110) Calcium 8.0 mg/dL L mg/dL (8.4-10.2) Iron TIBC % Saturation Ferritin Total Bilirubin 1.4 mg/dL H mg/dL (0.2-1.3) AST 35 U/L U/L (17-59) ALT 32 U/L U/L (6-50) Alkaline Phosphatase 132 U/L H U/L (38-126) C-Reactive Protein 5.8 mg/dL H mg/dL (<1.0) Total Protein 6.0 g/dL L g/dL (6.3-8.2) Albumin 2.9 g/dL L g/dL (3.5-5.1) Vitamin B12 Folate Procalcitonin 0.1 ng/mL ng/mL TSH (Reflex) 01/11/23 01/11/23 01/12/23 13:01 13:01 09:48 WBC RBC Hgb Hct MCV MCH MCHC RDW Plt Count MPV Immature Gran % (Auto) Neut % (Auto) Lymph % (Auto) [place] % (Auto) Eos % (Auto) Baso % (Auto) Lymph # (Auto) [place] # (Auto) Eos # (Auto) Baso # (Auto) Abs Immat Gran (auto) Absolute Neuts (auto) Absolute Nucleated RBC Nucleated RBC % Sodium 134 mmol/L L mmol/L (137-145) Potassium 4.8 mmol/L mmol/L (3.4-5.0) Chloride 101 mmol/L mmol/L (98-107) Carbon Dioxide 34 mmol/L H mmol/L (22-30) Anion Gap -1 mmol/L L mmol/L
[2023-01-12] MEDS: LACTATED RINGERS 1,000 ML 150 ML IV CONT (13:58)
[2023-01-12] MEDS: fentaNYL CITRATE INJ (*CRX) 100 MCG/2 ML VIAL 25 MCG IV PUSH (14:23)
[2023-01-12] MEDS: ACETAMINOPHEN 325 MG TABLET 650 MG PO (16:30)
[2023-01-12] MEDS: traMADol HCL (*CRX) 25 MG TABLET PO (17:21)
[2023-01-12] MEDS: METOCLOPRAMIDE HCL INJ 10 MG/2 ML VIAL 5 MG IV PUSH (17:22)
[2023-01-12] MEDS: SIMVASTATIN 20 MG TABLET 40 MG PO (20:11)
[2023-01-12] MEDS: ACETAMINOPHEN 500 MG TABLET PO (20:11)
[2023-01-12] MEDS: MELATONIN 3 MG TABLET PO (20:11)
[2023-01-13] MEDS: METOCLOPRAMIDE HCL INJ 10 MG/2 ML VIAL 5 MG IV PUSH ×4 (01:34→17:01)
[2023-01-13] MEDS: LACTATED RINGERS 1,000 ML 75 ML IV CONT (03:12)
[2023-01-13] MEDS: ACETAMINOPHEN 500 MG TABLET PO ×3 (05:19→20:20)
[2023-01-13 05:43] VITALS: BP 144/48; PULSE 66; RESP 16; TEMP 35.9; O2SAT 99
[2023-01-13 06:31] LABS: Basophils Percent Auto 0.3 % (0.2-1.2); Eosinophils Absolute Auto 0.1 K/mm3 (0-0.3); Eosinophils Percent Auto 1.2 % (0-4.4); Hematocrit 26.5 % (42.0-52.0); Hemoglobin 8.1 g/dL (14.0-18.0); Immature Granulocyte Absolute 0.05 K/mm3 (0.00-0.031); Immature Granulocyte Percent A 0.5 % (0-0.5); Lymphocytes Percent Auto 15.3 % (18.3-44.2); Mean Corpuscular HGB Conc 30.6 g/dl (32-36); Mean Corpuscular Hemoglobin 29.1 pg (26-34); Mean Corpuscular Volume 95.3 fl (80-100); Mean Platelet Volume 9.3 fl (7.4-10.4); Monocytes Absolute Auto 0.6 K/mm3 (0.1-0.6); Monocytes Percent Auto 6.1 % (2.6-8.5); Neutrophils Percent Auto 76.6 % (45.5-73.1); Platelet Count Result 464 k/mm3 (150-375); Red Blood Count 2.78 M/mm3 (4.6-6.20); Red Cell Distribution Width 15.5 % (11.5-14.5); White Blood Count 10.5 K/mm3 (4.5-10.0)
[2023-01-13 06:47] LABS: Alanine Aminotransferase 23 U/L (6-50); Albumin Level 2.8 g/dL (3.5-5.1); Alkaline Phosphatase 124 U/L (38-126); Anion Gap 3 mmol/L (8-16); Aspartate Amino Transferase 26 U/L (17-59); Bilirubin,Total 1.1 mg/dL (0.2-1.3); Blood Urea Nitrogen 27 mg/dL (9-20); CRP 4.9 mg/dL (<1.0); Calcium 8.4 mg/dL (8.4-10.2); Carbon Dioxide 29 mmol/L (22-30); Chloride 102 mmol/L (98-107); Estimated CRCL calculation 80 ml/min; Estimated Glomerular Filt Rate > 60; Glucose 89 mg/dL (65-110); Potassium 4.3 mmol/L (3.4-5.0); Sodium 134 mmol/L (137-145)
[2023-01-13] MEDS: FERROUS SULFATE 324 MG TABLET PO (09:03)
[2023-01-13] MEDS: lisinopriL 20 MG TABLET PO (09:03)
[2023-01-13] MEDS: ASPIRIN 81 MG CHEWABLE TABLET PO (09:03)
[2023-01-13] MEDS: CHOLECALCIFEROL 1,000 UNITS TABLET 1000 UNITS PO (09:04)
[2023-01-13] MEDS: PANTOPRAZOLE SODIUM IV 40 MG VIAL IV PUSH (09:04)
[2023-01-13] MEDS: ENOXAPARIN 40 MG/0.4 ML SYRINGE SUB-Q (09:04)
--- NOTE | 2023-01-13 09:29 | PM.IMPN ---
Progress Note: A&P Assessment and Plan (1) Ileus: Code(s): K56.7 - Ileus, unspecified Status: Resolved Assessment and Plan: The patient had significant nausea and multiple episodes of emesis prior to admission. CT the outside facility showed findings of an ileus. He has not had any episodes of vomiting since arrival to this facility and he is no longer nauseated. Abdominal exam is benign he has normoactive bowel sounds. Diet per GI. Bowel regimen started. (2) Colon wall thickening: Code(s): K63.9 - Disease of intestine, unspecified Status: Acute Assessment and Plan: CT scan shows irregular wall thickening of the transverse colon suspicious for colon cancer. He denied personal and family history of colon cancer, however, patient does have dementia. He denied blood in the stools. Weight has remained stable. Colitis seems unlikely by history. Dr. Stewart has been consulted and his input is appreciated. EGD 01/12. Colonoscopy may be beneficial but we will defer to GI for this. (3) Normocytic anemia: Code(s): D64.9 - Anemia, unspecified Status: Acute Assessment and Plan: Records reviewed from recent stay at [facility]. Hemoglobin on admission was 10.0 and was 8.0 discharge, likely due to blood loss from surgery. He seems to have a chronic anemia. Serum iron 21, sat 8%, TIBC 250, ferritin 299. B12 363, folate 6. May be early iron deficiency anemia secondary to recent surgery. FOBT ordered and awaiting collection. EGD did did note small duodenal ulcers 2-4 mm. HGB 8.1 and stable. (4) Leukocytosis: Code(s): D72.829 - Elevated white blood cell count, unspecified Status: Acute Assessment and Plan: White blood cell count was 17.4 on admission to [facility] and it has remained elevated, with neutrophil predominance. He does have a nonproductive cough and reports strong smelling urine though he gives no obvious history to suggest active infection. Chest x-ray without acute infection and UA does not look acutely infected. His wounds do not look grossly infected. Hold on antibiotics for now and monitor. WBC decreased 10.5 patient afebrile. May be reactive. (5) Intertrochanteric fracture of left femur: Code(s): S72.142A - Displaced intertrochanteric fracture of left femur, initial encounter for closed fracture Status: Acute Assessment and Plan: Status post intramedullary dieter on 12/30/2022 at [facility]. Operative site looks good without evidence of infection. Continue PT/OT. Patient is on Lovenox for DVT prophylaxis (day 14 from surgery). And nursing reported patient with increased pain yesterday evening he was changed to extra-strength Tylenol 1 g Q 8 hours scheduled and p.r.n. tramadol 25 mg q.6 hours. Monitor pain control. Ambulate with WBAT per started swaying records. (6) Coronary artery disease: Code(s): I25.10 - Atherosclerotic heart disease of [place] coronary artery without angina pectoris Status: Chronic Assessment and Plan: Status post CABG many years ago. No acute issues. Continue aspirin and statin. (7) Hypertension: Code(s): I10 - Essential (primary) hypertension Status: Chronic Assessment and Plan: Blood pressures were reviewed and they have been reasonable. Continue antihypertensives and monitor. (8) Dementia: Code(s): F03.90 - Unspecified dementia, unspecified severity, without behavioral disturbance, psychotic disturbance, mood disturbance, and anxiety Status: Chronic Assessment and Plan: Patient seems to have pretty significant short-term memory loss. No mention of delirium with recent hospitalization. Plan CODE STATUS: FULL CODE Discharge disposition: completed [facility] at [place]. PT recommending SNF referral sent patient is awaiting SNF authorization. Care coordination is following. Time Spent With Patient Time with patient: 25 - 35 minutes
--- NOTE | 2023-01-13 09:51 | PCSTNOTE ---
Patient is NPO after midnight for EGD procedure today. Will check in after the procedure is completed.
--- NOTE | 2023-01-13 10:16 | WPDANESPN ---
Anes - Prog Note Post-Op Date/Time: 01/13/23 10:16 Cardiovascular status: normal Respiratory status: normal Airway patency: baseline Mental status: baseline Post-Op hydration status: normal Vital Signs: Last Vital Signs Temp 35.9 C L 01/13/23 05:43 Pulse 66 01/13/23 05:43 Resp 16 01/13/23 05:43 BP 144/48 H 01/13/23 05:43 Pulse Ox 99 01/13/23 05:43 O2 Del Method Room Air 01/12/23 20:00 Pain Score (VAS): 11/28 I/O: Intake & Output 01/12/23 01/13/23 01/13/23 23:59 07:59 15:59 Intake Total 250 Output Total 500 800 Balance -500 -550 Laboratory Tests 01/13/23 06:11 01/13/23 06:11 01/13/23 01/13/23 06:11 06:11 WBC 10.5 H RBC 2.78 L Hgb 8.1 L Hct 26.5 L MCV 95.3 MCH 29.1 MCHC 30.6 L RDW 15.5 H Plt Count 464 H MPV 9.3 Immature Gran % (Auto) 0.5 Neut % (Auto) 76.6 H Lymph % (Auto) 15.3 L [place] % (Auto) 6.1 Eos % (Auto) 1.2 Baso % (Auto) 0.3 Lymph # (Auto) 1.60 [place] # (Auto) 0.6 Eos # (Auto) 0.1 Baso # (Auto) 0.0 Abs Immat Gran (auto) 0.05 H Absolute Neuts (auto) 8.0 H Absolute Nucleated RBC 0.0 Nucleated RBC % 0.0 Sodium 134 L Potassium 4.3 Chloride 102 Carbon Dioxide 29 Anion Gap 3 L BUN 27 H Creatinine 0.60 L Estim Creat Clear Calc 80 Estimated GFR > 60 Glucose 89 Calcium 8.4 Total Bilirubin 1.1 AST 26 ALT 23 Alkaline Phosphatase 124 C-Reactive Protein 4.9 H Total Protein 6.0 L Albumin 2.8 L Post-procedural complaints: none Patient Feedback: Patient satisfied with anesthetic care.
--- NOTE | 2023-01-13 10:52 | PCSTNOTE ---
Therapist contacted Dr. Stewart who allowed oral presentations today. EGD was yesterday so no longer NPO. Bedside Swallow Evaluation completed and Modified Barium Swallow study is suggested.
--- NOTE | 2023-01-13 12:21 | WPDGIPROGNO ---
Progress Note: A&P Assessment and Plan (1) Nausea and vomiting: Code(s): R11.2 - Nausea with vomiting, unspecified Status: Acute Assessment and Plan: reportedly he had several episodes of nausea and vomiting 2 days ago, prior to his transfer here yesterday. He does not recall that. He was given a trial of liquids last night but has been otherwise NPO. CT scan shows a distended stomach. (2) Colon wall thickening: Code(s): K63.9 - Disease of intestine, unspecified Status: Acute Assessment and Plan: Focal thickening of the transverse colon seen on CT scan could be neoplasm. It could also be an artifact. It would be unusual spot for ischemic colitis. (3) Abnormal CT scan, gastrointestinal tract: Code(s): R93.3 - Abnormal findings on diagnostic imaging of other parts of digestive tract Status: Acute Assessment and Plan: The possibility of neoplasm will eventually need to be addressed. Whether we can perform a colonoscopy depends on how he does with swallowing. Modified barium swallow has been ordered (4) Dementia: Code(s): F03.90 - Unspecified dementia, unspecified severity, without behavioral disturbance, psychotic disturbance, mood disturbance, and anxiety Status: Chronic Plan Bedside swallow evaluation has been done. He is scheduled now for modified barium swallow. Subjective Date/time seen: 01/13/23 12:21 He has not yet tried eating. I it would like to get speech therapy involved and have ordered a bedside swallow evaluation. They called to report that he did well with some fluids but declined to take all of those that were offered. He only had 1 brief episode of a possible aspiration. Consequently they are recommending modified barium swallow. I discussed with him the EGD yesterday. He is hard of hearing and I am not sure how well he digested what I told him. He did have reflux esophagitis but there was no stricture. He also had a bit of retained food in the stomach for which reason I have started him on Reglan. We may at some point need to perform a gastric emptying study. There is still a concern about the abnormal CT findings in the transverse colon but at this juncture, I am not sure he will be able to tolerate a prep. Exam Const: General: alert and awake Orientation/consciousness: oriented to person and oriented to place HENMT: Ears: hearing grossly impaired Neck: Neck: normal visual inspection Resp: Auscultation: clear to auscultation bilaterally Cardio: Rhythm: regular rhythm GI: Inspection: normal to inspection GI Palp: Yes Soft to palpation, No Tenderness to palpation present (GI), Yes No hepatosplenomegaly present, No Palpable mass present and No Ascites present Auscultation: normal bowel sounds Neuro: General: patient oriented x3 Objective Data Vital Signs Vital Signs: Vital Signs - 24 hr 01/12/23 13:57 01/12/23 14:52 01/12/23 15:02 Temperature 35.8 C L Pulse Rate 74 72 73 Respiratory Rate 20 20 21 H Blood Pressure 132/53 L 147/61 H 141/66 H Pulse Oximetry 100 99 98 Oxygen Delivery Room Air Room Air Room Air 01/12/23 15:12 01/12/23 15:30 01/12/23 22:00 Temperature 35.7 C L 36.2 C L Pulse Rate 68 77 66 Respiratory Rate 23 H 32 H 15 Blood Pressure 124/71 152/74 H 136/49 L Pulse Oximetry 99 100 97 Oxygen Delivery Room Air 01/12/23 20:00 01/13/23 05:43 Temperature 35.9 C L Pulse Rate 66 Respiratory Rate 16 Blood Pressure 144/48 H Pulse Oximetry 99 Oxygen Delivery Room Air Intake/Output Intake/Output: Intake & Output 01/10/23 01/11/23 01/12/23 01/13/23 23:59 23:59 23:59 23:59 Intake Total 100 300 250 Output Total 200 900 800 Balance -100 -600 -550 Meds/Results Medications: Active Medications Generic Name Dose Route Start Last Admin Trade Name Freq PRN Reason Stop Dose Admin Acetaminophen 650 mg 01/11/23 19:58 01/12/23 16:30 Acetaminophen 325 Mg Tablet PO 650 mg
--- NOTE | 2023-01-13 12:48 | PCSTNOTE ---
Please refer to the Modified Barium Swallow Evaluation in the EMR.
[2023-01-13 13:58] VITALS: BP 146/54; PULSE 66; RESP 20; TEMP 36.1; O2SAT 99
[2023-01-13 15:45] LABS: Appearance Urine Clear (Clear); Bilirubin Urine Negative (Negative); Blood Urine Negative (Negative); Color Urine Dark Yellow (Yellow); Glucose Urine UA Negative (Negative); Ketones Urine Trace mg/dL (Negative); Leukocyte Esterase Ur Negative LEU/UL (Negative); Nitrate Urine Negative (Negative); Protein Urine Negative (Negative); Specific Grav Ur 1.022 (1.001-1.035); Urobilinogen Urine >=8.0 mg/dL (<2.0); pH Urine 6.5 (5.0-9.0)
[2023-01-13 15:48] LABS: Add Urine Microscopic? NO
[2023-01-13] MEDS: SENNA/DOCUSATE SODIUM TABLET 1 TAB PO (20:20)
[2023-01-13] MEDS: MELATONIN 3 MG TABLET PO (20:20)
[2023-01-13] MEDS: SIMVASTATIN 20 MG TABLET 40 MG PO (20:20)
[2023-01-13 22:00] VITALS: BP 140/55; PULSE 72; RESP 16; TEMP 36.4; O2SAT 98
[2023-01-14] MEDS: METOCLOPRAMIDE HCL INJ 10 MG/2 ML VIAL 5 MG IV PUSH ×4 (00:33→18:04)
[2023-01-14] MEDS: ACETAMINOPHEN 500 MG TABLET PO ×2 (05:17→21:03)
[2023-01-14 05:40] VITALS: BP 156/50; PULSE 74; RESP 18; TEMP 36.1; O2SAT 100
[2023-01-14 06:32] LABS: Hemoglobin 7.7 g/dL (14.0-18.0); Mean Corpuscular HGB Conc 30.8 g/dl (32-36); Mean Corpuscular Hemoglobin 29.2 pg (26-34); Mean Corpuscular Volume 94.7 fl (80-100); Mean Platelet Volume 9.4 fl (7.4-10.4); Platelet Count Result 409 k/mm3 (150-375); Red Blood Count 2.64 M/mm3 (4.6-6.20); Red Cell Distribution Width 15.2 % (11.5-14.5); White Blood Count 10.7 K/mm3 (4.5-10.0)
[2023-01-14 06:36] LABS: Anion Gap 3 mmol/L (8-16); Blood Urea Nitrogen 28 mg/dL (9-20); Calcium 7.7 mg/dL (8.4-10.2); Carbon Dioxide 29 mmol/L (22-30); Chloride 104 mmol/L (98-107); Estimated CRCL calculation 80 ml/min; Estimated Glomerular Filt Rate > 60; Glucose 117 mg/dL (65-110); Potassium 4.2 mmol/L (3.4-5.0); Sodium 136 mmol/L (137-145)
[2023-01-14] MEDS: lisinopriL 20 MG TABLET PO (08:05)
[2023-01-14] MEDS: ASPIRIN 81 MG CHEWABLE TABLET PO (08:05)
[2023-01-14] MEDS: FERROUS SULFATE 324 MG TABLET PO (08:05)
[2023-01-14] MEDS: CHOLECALCIFEROL 1,000 UNITS TABLET 1000 UNITS PO (08:05)
[2023-01-14] MEDS: ACETAMINOPHEN 325 MG TABLET 650 MG PO (08:06)
[2023-01-14] MEDS: PANTOPRAZOLE SODIUM IV 40 MG VIAL IV PUSH (08:06)
[2023-01-14] MEDS: ENOXAPARIN 40 MG/0.4 ML SYRINGE SUB-Q (08:06)
[2023-01-14] MEDS: polyethylene glycoL 3350 17 GM POWD.PACK PO (08:09)
[2023-01-14] MEDS: traMADol HCL (*CRX) 25 MG TABLET PO (11:25)
[2023-01-14 14:28] VITALS: BP 160/59; PULSE 75; RESP 18; TEMP 36.2; O2SAT 100
--- NOTE | 2023-01-14 14:30 | P.PNIM_ITS ---
Progress Note: A&P Assessment and Plan (1) Ileus: Code(s): K56.7 - Ileus, unspecified Status: Resolved Assessment and Plan: The patient had significant nausea and multiple episodes of emesis prior to admission. * CT the outside facility showed findings of an ileus. * He has not had any episodes of vomiting since arrival to this facility and he is no longer nauseated. * Abdominal exam is benign he has normoactive bowel sounds. * Diet per GI. (2) Colon wall thickening: Code(s): K63.9 - Disease of intestine, unspecified Status: Acute Assessment and Plan: CT scan shows irregular wall thickening of the transverse colon suspicious for colon cancer. He denied personal and family history of colon cancer, however, patient does have dementia. * He denied blood in the stools. Weight has remained stable. * Colitis seems unlikely by history. Dr. Stewart has been consulted and his input is appreciated. EGD 01/12. * Colonoscopy may be beneficial but we will defer to GI for this. (3) Normocytic anemia: Code(s): D64.9 - Anemia, unspecified Status: Acute Assessment and Plan: Records reviewed from recent stay at [facility]. * Hemoglobin on admission was 10.0 and was 8.0 discharge, likely due to blood loss from surgery. * He seems to have a chronic anemia. Serum iron 21, sat 8%, TIBC 250, ferritin 299. B12 363, folate 6. * May be early iron deficiency anemia secondary to recent surgery. FOBT ordered and awaiting collection. * EGD did did note small duodenal ulcers 2-4 mm. HGB 8.1 and stable. (4) Leukocytosis: Code(s): D72.829 - Elevated white blood cell count, unspecified Status: Acute Assessment and Plan: White blood cell count was 17.4 on admission to [facility] and it has remained elevated, with neutrophil predominance. * He does have a nonproductive cough and reports strong smelling urine though he gives no obvious history to suggest active infection. * Chest x-ray without acute infection and UA does not look acutely infected. His wounds do not look grossly infected. * Hold on antibiotics for now and monitor. WBC decreased 10.5 patient afebrile. May be reactive. (5) Intertrochanteric fracture of left femur: Code(s): S72.142A - Displaced intertrochanteric fracture of left femur, initial encounter for closed fracture Status: Acute Assessment and Plan: Status post intramedullary dieter on 12/30/2022 at [facility]. Operative site looks good without evidence of infection. * Continue PT/OT. Patient is on Lovenox for DVT prophylaxis (day 14 from surgery). * And nursing reported patient with increased pain yesterday evening he was changed to extra-strength Tylenol 1 g Q 8 hours scheduled and p.r.n. tramadol 25 mg q.6 hours. * Monitor pain control. Ambulate with WBAT per started swaying records. * Awaiting placement into rehab (6) Coronary artery disease: Code(s): I25.10 - Atherosclerotic heart disease of [place] coronary artery without angina pectoris Status: Chronic Assessment and Plan: Status post CABG many years ago. No acute issues. Continue aspirin and statin. (7) Hypertension: Code(s): I10 - Essential (primary) hypertension Status: Chronic Assessment and Plan: Blood pressures were reviewed and they have been reasonable. Continue antihypertensives and monitor.
--- NOTE | 2023-01-14 14:30 | PM.IMPN ---
Progress Note: A&P Assessment and Plan (1) Ileus: Code(s): K56.7 - Ileus, unspecified Status: Resolved Assessment and Plan: The patient had significant nausea and multiple episodes of emesis prior to admission. CT the outside facility showed findings of an ileus. He has not had any episodes of vomiting since arrival to this facility and he is no longer nauseated. Abdominal exam is benign he has normoactive bowel sounds. Diet per GI. (2) Colon wall thickening: Code(s): K63.9 - Disease of intestine, unspecified Status: Acute Assessment and Plan: CT scan shows irregular wall thickening of the transverse colon suspicious for colon cancer. He denied personal and family history of colon cancer, however, patient does have dementia. He denied blood in the stools. Weight has remained stable. Colitis seems unlikely by history. Dr. Stewart has been consulted and his input is appreciated. EGD 01/12. Colonoscopy may be beneficial but we will defer to GI for this. (3) Normocytic anemia: Code(s): D64.9 - Anemia, unspecified Status: Acute Assessment and Plan: Records reviewed from recent stay at [facility]. Hemoglobin on admission was 10.0 and was 8.0 discharge, likely due to blood loss from surgery. He seems to have a chronic anemia. Serum iron 21, sat 8%, TIBC 250, ferritin 299. B12 363, folate 6. May be early iron deficiency anemia secondary to recent surgery. FOBT ordered and awaiting collection. EGD did did note small duodenal ulcers 2-4 mm. HGB 8.1 and stable. (4) Leukocytosis: Code(s): D72.829 - Elevated white blood cell count, unspecified Status: Acute Assessment and Plan: White blood cell count was 17.4 on admission to [facility] and it has remained elevated, with neutrophil predominance. He does have a nonproductive cough and reports strong smelling urine though he gives no obvious history to suggest active infection. Chest x-ray without acute infection and UA does not look acutely infected. His wounds do not look grossly infected. Hold on antibiotics for now and monitor. WBC decreased 10.5 patient afebrile. May be reactive. (5) Intertrochanteric fracture of left femur: Code(s): S72.142A - Displaced intertrochanteric fracture of left femur, initial encounter for closed fracture Status: Acute Assessment and Plan: Status post intramedullary [facility] 12/[facility]/2022 [facility] Operative site looks good without evidence of infection. Continue PT/OT. Patient is on Lovenox for DVT prophylaxis (day 14 from surgery). And nursing reported patient with increased pain yesterday evening he was changed to extra-strength Tylenol 1 g Q 8 hours scheduled and p.r.n. tramadol 25 mg q.6 hours. Monitor pain control. Ambulate with WBAT per started swaying records. Awaiting placement into rehab (6) Coronary artery disease: Code(s): I25.10 - Atherosclerotic heart disease of [place] coronary artery without angina pectoris Status: Chronic Assessment and Plan: Status post CABG many years ago. No acute issues. Continue aspirin and statin. (7) Hypertension: Code(s): I10 - Essential (primary) hypertension Status: Chronic Assessment and Plan: Blood pressures were reviewed and they have been reasonable. Continue antihypertensives and monitor. (8) Dementia: Code(s): F03.90 - Unspecified dementia, unspecified severity, without behavioral disturbance, psychotic disturbance, mood disturbance, and anxiety Status: Chronic Assessment and Plan: Patient seems to have pretty significant short-term memory loss. No mention of delirium with recent hospitalization. Plan CODE STATUS: FULL CODE Discharge disposition: completed [facility] [place]. PT recommending SNF referral sent patient is awaiting S
--- NOTE | 2023-01-14 15:27 | PCCCNOTE ---
On 01/14/23, the student, [Za Waldron ], provided care and [facility]. I have reviewed the student's documentation and agree with the findings.
[2023-01-14 20:22] LABS: IFOB Positive Control Positive; Immunochemical Fecal Occult Bl Positive (N)
[2023-01-14] MEDS: MELATONIN 3 MG TABLET PO (21:03)
[2023-01-14] MEDS: SENNA/DOCUSATE SODIUM TABLET 1 TAB PO (21:29)
[2023-01-14] MEDS: SIMVASTATIN 20 MG TABLET 40 MG PO (21:29)
[2023-01-14 22:00] VITALS: BP 158/62; PULSE 81; RESP 14; TEMP 36.7; O2SAT 99
[2023-01-15] MEDS: METOCLOPRAMIDE HCL INJ 10 MG/2 ML VIAL 5 MG IV PUSH ×2 (00:52→05:00)
[2023-01-15] MEDS: traMADol HCL (*CRX) 25 MG TABLET PO (00:52)
[2023-01-15] MEDS: ACETAMINOPHEN 500 MG TABLET PO ×3 (05:00→20:45)
[2023-01-15 05:46] VITALS: BP 149/56; PULSE 66; RESP 14; TEMP 36.8; O2SAT 98
[2023-01-15 06:48] LABS: Alanine Aminotransferase 22 U/L (6-50); Albumin Level 2.5 g/dL (3.5-5.1); Alkaline Phosphatase 109 U/L (38-126); Anion Gap 2 mmol/L (8-16); Aspartate Amino Transferase 31 U/L (17-59); Bilirubin,Total 0.8 mg/dL (0.2-1.3); Blood Urea Nitrogen 24 mg/dL (9-20); Calcium 7.5 mg/dL (8.4-10.2); Carbon Dioxide 25 mmol/L (22-30); Chloride 102 mmol/L (98-107); Estimated CRCL calculation 95 ml/min; Estimated Glomerular Filt Rate > 60; Glucose 93 mg/dL (65-110); Potassium 4.3 mmol/L (3.4-5.0); Sodium 129 mmol/L (137-145)
[2023-01-15 06:58] LABS: Basophils Percent Auto 0.3 % (0.2-1.2); Eosinophils Absolute Auto 0.1 K/mm3 (0-0.3); Eosinophils Percent Auto 1.3 % (0-4.4); Hematocrit 23.5 % (42.0-52.0); Hemoglobin 7.5 g/dL (14.0-18.0); Immature Granulocyte Absolute 0.07 K/mm3 (0.00-0.031); Immature Granulocyte Percent A 0.7 % (0-0.5); Lymphocytes Absolute Auto 1.61 K/mm3 (0.9-3.2); Lymphocytes Percent Auto 15.5 % (18.3-44.2); Mean Corpuscular HGB Conc 31.9 g/dl (32-36); Mean Platelet Volume 8.9 fl (7.4-10.4); Monocytes Absolute Auto 0.6 K/mm3 (0.1-0.6); Monocytes Percent Auto 6.1 % (2.6-8.5); Neutrophils Absolute Auto 7.9 K/mm3 (1.3-6.7); Neutrophils Percent Auto 76.1 % (45.5-73.1); Platelet Count Result 340 k/mm3 (150-375); Red Cell Distribution Width 15.3 % (11.5-14.5); White Blood Count 10.4 K/mm3 (4.5-10.0)
--- NOTE | 2023-01-15 07:13 | WPDGIPROGNO ---
Progress Note: A&P Assessment and Plan (1) Nausea and vomiting: Code(s): R11.2 - Nausea with vomiting, unspecified Status: Acute Assessment and Plan: reportedly he had several episodes of nausea and vomiting 2 days ago, prior to his transfer here yesterday. He does not recall that. He was given a trial of liquids last night but has been otherwise NPO. CT scan shows a distended stomach. (2) Colon wall thickening: Code(s): K63.9 - Disease of intestine, unspecified Status: Acute Assessment and Plan: Focal thickening of the transverse colon seen on CT scan could be neoplasm. It could also be an artifact. It would be unusual spot for ischemic colitis. (3) Abnormal CT scan, gastrointestinal tract: Code(s): R93.3 - Abnormal findings on diagnostic imaging of other parts of digestive tract Status: Acute Assessment and Plan: The possibility of neoplasm will eventually need to be addressed. Whether we can perform a colonoscopy depends on how he does with swallowing. Modified barium swallow has been ordered he that he eating well now. I will obtain a gastric emptying scan. Regarding the colon, I think we can hold off on colonoscopy for now. Perhaps repeat CT scan would be beneficial. I think would be difficult for him to take the prep. (4) Dementia: Code(s): F03.90 - Unspecified dementia, unspecified severity, without behavioral disturbance, psychotic disturbance, mood disturbance, and anxiety Status: Chronic (5) Duodenal bulb ulcer: Code(s): K26.9 - Duodenal ulcer, unspecified as acute or chronic, without hemorrhage or perforation Status: Acute Assessment and Plan: these were small and should heal with a few weeks of PPI. H pylori was negative Plan Bedside swallow evaluation has been done. He is scheduled now for modified barium swallow. Subjective Date/time seen: 01/15/23 07:13 He is lying comfortably in bed. He has been eating without any apparent difficulty. I have had him on Reglan because there was some retention of food in the stomach when I did EGD. I will stop the metoclopramide now and schedule a gastric emptying scan. The findings on CT scan regarding the colon still need to be addressed at some point. I am not sure he could take a prep now. I think I would prefer to repeat a CT scan sometime down the line. Exam Const: General: alert and awake Orientation/consciousness: oriented to person and oriented to place HENMT: Ears: hearing grossly impaired Neck: Neck: normal visual inspection Resp: Auscultation: clear to auscultation bilaterally Cardio: Rhythm: regular rhythm GI: Inspection: normal to inspection GI Palp: Yes Soft to palpation, No Tenderness to palpation present (GI), Yes No hepatosplenomegaly present, No Palpable mass present and No Ascites present Auscultation: normal bowel sounds Neuro: General: patient oriented x3 Objective Data Vital Signs Vital Signs: Vital Signs - 24 hr 01/14/23 14:28 01/14/23 22:00 01/14/23 20:00 Temperature 36.2 C L 36.7 C Pulse Rate 75 81 Respiratory Rate 18 14 Blood Pressure 160/59 H 158/62 H Pulse Oximetry 100 99 Oxygen Delivery Room Air 01/15/23 05:46 Temperature 36.8 C Pulse Rate 66 Respiratory Rate 14 Blood Pressure 149/56 H Pulse Oximetry 98 Oxygen Delivery Intake/Output Intake/Output: Intake & Output 01/12/23 01/13/23 01/14/23 01/15/23 23:59 23:59 23:59 23:59 Intake Total 071 694 7051 Output Total 325 968 7270 700 Balance -600 -190 270 -700 Meds/Results Medications: Active Medications Generic Name Dose Route Start Last Admin Trade Name Stuart PRN Reason Stop Dose Admin Acetaminophen 650 mg 01/11/23 19:58 01/14/23 08:06 Acetaminophen 325 Mg Tablet PO 650 mg Q6H PRN Administration Mild Pain (1-3) or Fever Acetaminophen 500 mg 01/12/23 21:00 01/15/23 05:00 Acetaminophen 500 Mg Tablet PO 500 mg
--- NOTE | 2023-01-15 07:50 | P.PNIM_ITS ---
Progress Note: A&P Assessment and Plan (1) Ileus: Code(s): K56.7 - Ileus, unspecified Status: Resolved Assessment and Plan: The patient had significant nausea and multiple episodes of emesis prior to admission. * CT the outside facility showed findings of an ileus. * He has not had any episodes of vomiting since arrival to this facility and he is no longer nauseated. * Abdominal exam is benign he has normoactive bowel sounds. * Diet per GI. * Patient had gastric emptying scan which was normal. (2) Colon wall thickening: Code(s): K63.9 - Disease of intestine, unspecified Status: Acute Assessment and Plan: CT scan shows irregular wall thickening of the transverse colon suspicious for colon cancer. He denied personal and family history of colon cancer, however, patient does have dementia. * He denied blood in the stools. Weight has remained stable. * Colitis seems unlikely by history. Dr. Stewart has been consulted and his input is appreciated. EGD 01/12. * EGD did did note small duodenal ulcers 2-4 mm. HGB 8.1 and stable. * GI no recommending coloscopy at this time due to risk of prep noncompliance and aspriation. * Recommends following up in [address] scan. (3) Normocytic anemia: Code(s): D64.9 - Anemia, unspecified Status: Acute Assessment and Plan: Records reviewed from recent stay at [facility]. * Hemoglobin on admission was 10.0 and was 8.0 discharge, likely due to blood loss from surgery. * He seems to have a chronic anemia. Serum iron 21, sat 8%, TIBC 250, ferritin 299. B12 363, folate 6. * May be early iron deficiency anemia secondary to recent surgery. FOBT ordered and awaiting collection. * EGD did did note small duodenal ulcers 2-4 mm. HGB 8.1 and stable. (4) Leukocytosis: Code(s): D72.829 - Elevated white blood cell count, unspecified Status: Acute Assessment and Plan: White blood cell count was 17.4 on [facility] and it has remained elevated, with neutrophil predominance. * He does have a nonproductive cough and reports strong smelling urine though he gives no obvious history to suggest active infection. * Chest x-ray without acute infection and UA does not look acutely infected. His wounds do not look grossly infected. * Hold on antibiotics for now and monitor. WBC decreased 10.5 patient afebrile. May be reactive. (5) Intertrochanteric fracture of left femur: Code(s): S72.142A - Displaced intertrochanteric fracture of left femur, initial encounter for closed fracture Status: Acute Assessment and Plan: Status post intramedullary dieter on 12/30/2022 at [facility]. Operative site looks good without evidence of infection. * Continue PT/OT. Patient is on Lovenox for DVT prophylaxis (day 14 from surgery). * And nursing reported patient with increased pain yesterday evening he was changed to extra-strength Tylenol 1 g Q 8 hours scheduled and p.r.n. tramadol 25 mg q.6 hours. * Monitor pain control. Ambulate with WBAT per started swaying records. * Awaiting placement into rehab (6) Coronary artery disease: Code(s): I25.10 - Atherosclerotic heart disease of [place] coronary artery without angina pectoris Status: Chronic Assessment and Plan: Status post CABG many years ago. No acute issues. Continue aspirin and statin. (7) Hypertensio
--- NOTE | 2023-01-15 07:50 | PM.IMPN ---
Progress Note: A&P Assessment and Plan (1) Ileus: Code(s): K56.7 - Ileus, unspecified Status: Resolved Assessment and Plan: The patient had significant nausea and multiple episodes of emesis prior to admission. CT the outside facility showed findings of an ileus. He has not had any episodes of vomiting since arrival to this facility and he is no longer nauseated. Abdominal exam is benign he has normoactive bowel sounds. Diet per GI. Patient had gastric emptying scan which was normal. (2) Colon wall thickening: Code(s): K63.9 - Disease of intestine, unspecified Status: Acute Assessment and Plan: CT scan shows irregular wall thickening of the transverse colon suspicious for colon cancer. He denied personal and family history of colon cancer, however, patient does have dementia. He denied blood in the stools. Weight has remained stable. Colitis seems unlikely by history. Dr. Stewart has been consulted and his input is appreciated. EGD 01/12. EGD did did note small duodenal ulcers 2-4 mm. HGB 8.1 and stable. GI no recommending coloscopy at this time due to risk of prep noncompliance and aspriation. Recommends following up in [address] scan. (3) Normocytic anemia: Code(s): D64.9 - Anemia, unspecified Status: Acute Assessment and Plan: Records reviewed from recent stay at [facility]. Hemoglobin on admission was 10.0 and was 8.0 discharge, likely due to blood loss from surgery. He seems to have a chronic anemia. Serum iron 21, sat 8%, TIBC 250, ferritin 299. B12 363, folate 6. May be early iron deficiency anemia secondary to recent surgery. FOBT ordered and awaiting collection. EGD did did note small duodenal ulcers 2-4 mm. HGB 8.1 and stable. (4) Leukocytosis: Code(s): D72.829 - Elevated white blood cell count, unspecified Status: Acute Assessment and Plan: White blood cell count was 17.4 on admission to [facility] and it has remained elevated, with neutrophil predominance. He does have a nonproductive cough and reports strong smelling urine though he gives no obvious history to suggest active infection. Chest x-ray without acute infection and UA does not look acutely infected. His wounds do not look grossly infected. Hold on antibiotics for now and monitor. WBC decreased 10.5 patient afebrile. May be reactive. (5) Intertrochanteric fracture of left femur: Code(s): S72.142A - Displaced intertrochanteric fracture of left femur, initial encounter for closed fracture Status: Acute Assessment and Plan: Status post intramedullary dieter on 12/30/2022 at [facility]. Operative site looks good without evidence of infection. Continue PT/OT. Patient is on Lovenox for DVT prophylaxis (day 14 from surgery). And nursing reported patient with increased pain yesterday evening he was changed to extra-strength Tylenol 1 g Q 8 hours scheduled and p.r.n. tramadol 25 mg q.6 hours. Monitor pain control. Ambulate with WBAT per started swaying records. Awaiting placement into rehab (6) Coronary artery disease: Code(s): I25.10 - Atherosclerotic heart disease of [place] coronary artery without angina pectoris Status: Chronic Assessment and Plan: Status post CABG many years ago. No acute issues. Continue aspirin and statin. (7) Hypertension: Code(s): I10 - Essential (primary) hypertension Status: Chronic Assessment and Plan: Blood pressures were reviewed and they have been reasonable. Continue antihypertensives and monitor. (8) Dementia: Code(s): F03.90 - Unspecified dementia, unspecified severity, without behavioral disturbance, psychotic disturbance, mood disturbance, and anxiety Status: Chronic Assessment and Plan: Patient seems to have pretty significant short-term memory los
[2023-01-15 08:30] VITALS: PULSE 66; RESP 14; O2SAT 98
[2023-01-15] MEDS: ENOXAPARIN 40 MG/0.4 ML SYRINGE SUB-Q (09:22)
--- NOTE | 2023-01-15 09:23 | PCOTNOTE ---
Attempted to see patient this am, however upon entering RN stated patient is going for nuclear medicine testing at 9:30. Pt not seen for this reason.
--- NOTE | 2023-01-15 12:08 | PCPTNOTE ---
The patient treatment was not able to be completed this morning due to patient out of room for testing. Will plan to continue treatment per plan of care.
[2023-01-15] MEDS: lisinopriL 20 MG TABLET PO (12:45)
[2023-01-15] MEDS: PANTOPRAZOLE SODIUM IV 40 MG VIAL IV PUSH (12:45)
[2023-01-15 14:00] VITALS: BP 141/53; PULSE 60; RESP 16; TEMP 36.7; O2SAT 98
--- NOTE | 2023-01-15 14:27 | PCNFU ---
Nutrition Follow-Up Complete: Inadequate energy intake related to NPO status as evidenced by current diet order Goal:Meet estimated needs Pt current nutrition is Regular, level 2 thickened liquids, HECTOR BID. Nutrition recommendation: Ensure compact BID Last recorded weight is 83 kg. Bowel Motility: +bM 01/14 Labs Reviewed: Hgb:7.5, HCT:23.5, Alb:2.5, NA:129, BUN:24, Cr:0.5 Meds Noted: lovenox, zofran Skin: Left heel DTPI Additional Notes: pt diet advanced to a regular diet, level 2 liquids. HECTOR BID ordered for wound healing. Intake is good at 75-100% most meals. Will add Ensure compact BID for additional 220kcals, 9g protein per shake due to wound. Monitor diet orders, wt, labs. Follow up in 5 days.
[2023-01-15] MEDS: SIMVASTATIN 20 MG TABLET 40 MG PO (20:45)
[2023-01-15] MEDS: MELATONIN 3 MG TABLET PO (20:45)
[2023-01-15 21:47] VITALS: BP 151/57; PULSE 71; RESP 14; TEMP 36.8; O2SAT 98
[2023-01-16] MEDS: ACETAMINOPHEN 500 MG TABLET PO ×2 (04:54→12:36)
[2023-01-16 05:39] VITALS: BP 150/58; PULSE 69; RESP 14; TEMP 36.2; O2SAT 97
[2023-01-16 06:51] LABS: Hematocrit 24.7 % (42.0-52.0); Hemoglobin 7.8 g/dL (14.0-18.0); Mean Corpuscular HGB Conc 31.6 g/dl (32-36); Mean Corpuscular Hemoglobin 29.3 pg (26-34); Mean Corpuscular Volume 92.9 fl (80-100); Mean Platelet Volume 9.3 fl (7.4-10.4); Platelet Count Result 387 k/mm3 (150-375); Red Blood Count 2.66 M/mm3 (4.6-6.20); Red Cell Distribution Width 15.3 % (11.5-14.5); White Blood Count 11.6 K/mm3 (4.5-10.0)
[2023-01-16 06:56] LABS: Anion Gap 2 mmol/L (8-16); Blood Urea Nitrogen 24 mg/dL (9-20); Calcium 7.9 mg/dL (8.4-10.2); Carbon Dioxide 27 mmol/L (22-30); Chloride 103 mmol/L (98-107); Estimated CRCL calculation 80 ml/min; Estimated Glomerular Filt Rate > 60; Glucose 103 mg/dL (65-110); Potassium 4.1 mmol/L (3.4-5.0); Sodium 132 mmol/L (137-145)
[2023-01-16] MEDS: polyethylene glycoL 3350 17 GM POWD.PACK PO (08:55)
[2023-01-16] MEDS: PANTOPRAZOLE SODIUM IV 40 MG VIAL IV PUSH (08:56)
[2023-01-16] MEDS: ENOXAPARIN 40 MG/0.4 ML SYRINGE SUB-Q (08:56)
[2023-01-16] MEDS: lisinopriL 20 MG TABLET PO (08:57)
[2023-01-16] MEDS: ASPIRIN 81 MG CHEWABLE TABLET PO (08:57)
[2023-01-16] MEDS: CHOLECALCIFEROL 1,000 UNITS TABLET 1000 UNITS PO (08:57)
[2023-01-16] MEDS: FERROUS SULFATE 324 MG TABLET PO (08:57)
[2023-01-16] MEDS: traMADol HCL (*CRX) 25 MG TABLET PO (10:08)
--- NOTE | 2023-01-16 13:21 | P.DS_ITS ---
DS: Admitting Diagnosis Discharge Date 01/16/23 Admitting Diagnosis Ileus, left hip fracture post ORIF, nausea, vomiting DS: Discharge Diagnosis Discharge Diagnosis (1) Ileus: Code(s): K56.7 - Ileus, unspecified Status: Resolved Assessment and Plan: The patient had significant nausea and multiple episodes of emesis prior to admission. * CT the outside facility showed findings of an ileus. * He has not had any episodes of vomiting since arrival to this facility and he is no longer nauseated. * Abdominal exam is benign he has normoactive bowel sounds. * Diet per GI. * Patient had gastric emptying scan which was normal. (2) Colon wall thickening: Code(s): K63.9 - Disease of intestine, unspecified Status: Acute Assessment and Plan: CT scan shows irregular wall thickening of the transverse colon suspicious for colon cancer. He denied personal and family history of colon cancer, however, patient does have dementia. * He denied blood in the stools. Weight has remained stable. * Colitis seems unlikely by history. Dr. Stewart has been consulted and his input is appreciated. EGD 01/12. * EGD did did note small duodenal ulcers 2-4 mm. HGB 8.1 and stable. * GI no recommending coloscopy at this time due to risk of prep noncompliance and aspriation. * Recommends following up in [address] scan. (3) Normocytic anemia: Code(s): D64.9 - Anemia, unspecified Status: Acute Assessment and Plan: Records reviewed from recent stay at [facility]. * Hemoglobin on admission was 10.0 and was 8.0 discharge, likely due to blood loss from surgery. * He seems to have a chronic anemia. Serum iron 21, sat 8%, TIBC 250, ferritin 299. B12 363, folate 6. * May be early iron deficiency anemia secondary to recent surgery. FOBT ordered and awaiting collection. * EGD did did note small duodenal ulcers 2-4 mm. HGB 8.1 and stable. (4) Leukocytosis: Code(s): D72.829 - Elevated white blood cell count, unspecified Status: Acute Assessment and Plan: White blood cell count was 17.4 on [facility] and it has remained elevated, with neutrophil predominance. * He does have a nonproductive cough and reports strong smelling urine though he gives no obvious history to suggest active infection. * Chest x-ray without acute infection and UA does not look acutely infected. His wounds do not look grossly infected. * Hold on antibiotics for now and monitor. WBC decreased 10.5 patient afebrile. May be reactive. (5) Intertrochanteric fracture of left femur: Code(s): S72.142A - Displaced intertrochanteric fracture of left femur, initial encounter for closed fracture Status: Acute Assessment and Plan: Status post intramedullary dieter on 12/30/2022 at [facility]. Operative site looks good without evidence of infection. * Continue PT/OT. Patient is on Lovenox for DVT prophylaxis (day 14 from surgery). * And nursing reported patient with increased pain yesterday evening he was changed to extra-strength Tylenol 1 g Q 8 hours scheduled and p.r.n. tramadol 25 mg q.6 hours. * Monitor pain control. Ambulate with WBAT per started swaying records. * Awaiting placement into rehab (6) Coronary artery disease: Code(s): I25.10 - Atherosclerotic heart disease of [place] coronary artery without angina pectoris Status: Chronic [place]
--- NOTE | 2023-01-16 13:21 | PM.DS ---
DS: Admitting Diagnosis Discharge Date 01/16/23 Admitting Diagnosis Ileus, left hip fracture post ORIF, nausea, vomiting DS: Discharge Diagnosis Discharge Diagnosis (1) Ileus: Code(s): K56.7 - Ileus, unspecified Status: Resolved Assessment and Plan: The patient had significant nausea and multiple episodes of emesis prior to admission. CT the outside facility showed findings of an ileus. He has not had any episodes of vomiting since arrival to this facility and he is no longer nauseated. Abdominal exam is benign he has normoactive bowel sounds. Diet per GI. Patient had gastric emptying scan which was normal. (2) Colon wall thickening: Code(s): K63.9 - Disease of intestine, unspecified Status: Acute Assessment and Plan: CT scan shows irregular wall thickening of the transverse colon suspicious for colon cancer. He denied personal and family history of colon cancer, however, patient does have dementia. He denied blood in the stools. Weight has remained stable. Colitis seems unlikely by history. Dr. Stewart has been consulted and his input is appreciated. EGD 01/12. EGD did did note small duodenal ulcers 2-4 mm. HGB 8.1 and stable. GI no recommending coloscopy at this time due to risk of prep noncompliance and aspriation. Recommends following up in [address] scan. (3) Normocytic anemia: Code(s): D64.9 - Anemia, unspecified Status: Acute Assessment and Plan: Records reviewed from recent stay at [facility]. Hemoglobin on admission was 10.0 and was 8.0 discharge, likely due to blood loss from surgery. He seems to have a chronic anemia. Serum iron 21, sat 8%, TIBC 250, ferritin 299. B12 363, folate 6. May be early iron deficiency anemia secondary to recent surgery. FOBT ordered and awaiting collection. EGD did did note small duodenal ulcers 2-4 mm. HGB 8.1 and stable. (4) Leukocytosis: Code(s): D72.829 - Elevated white blood cell count, unspecified Status: Acute Assessment and Plan: White blood cell count was 17.4 on admission to [facility] and it has remained elevated, with neutrophil predominance. He does have a nonproductive cough and reports strong smelling urine though he gives no obvious history to suggest active infection. Chest x-ray without acute infection and UA does not look acutely infected. His wounds do not look grossly infected. Hold on antibiotics for now and monitor. WBC decreased 10.5 patient afebrile. May be reactive. (5) Intertrochanteric fracture of left femur: Code(s): S72.142A - Displaced intertrochanteric fracture of left femur, initial encounter for closed fracture Status: Acute Assessment and Plan: Status post intramedullary dieter on 12/30/2022 at [facility]. Operative site looks good without evidence of infection. Continue PT/OT. Patient is on Lovenox for DVT prophylaxis (day 14 from surgery). And nursing reported patient with increased pain yesterday evening he was changed to extra-strength Tylenol 1 g Q 8 hours scheduled and p.r.n. tramadol 25 mg q.6 hours. Monitor pain control. Ambulate with WBAT per started swaying records. Awaiting placement into rehab (6) Coronary artery disease: Code(s): I25.10 - Atherosclerotic heart disease of [place] coronary artery without angina pectoris Status: Chronic Assessment and Plan: Status post CABG many years ago. No acute issues. Continue aspirin and statin. (7) Hypertension: Code(s): I10 - Essential (primary) hypertension Status: Chronic Assessment and Plan: Blood pressures were reviewed and they have been reasonable. Continue antihypertensives and monitor. (8) Dementia: Code(s): F03.90 - Unspecified dementia, unspecified severity, without behavioral disturbance, psychotic disturbance, mood distur
[2023-01-16 14:34] LABS: EDCOVIDSCREEN Negative (Negative)
== END 2023-01-16 17:20 ==
PROVIDERS: Internal Medicine Critical Care Medicine; Internal Medicine Gastroenterology; Nurse Practitioner Family; Physician Assistant; Admitting Provider Chiropractor; Visit Provider Internal Medicine
PROC: 0DJ08ZZ Inspection of Upper Intestinal Tract, Via Natural or Artificial Opening Endoscopic (ICD-10-PCS; CPT 43235; principal; 2023-01-12 15:15)
DX: K56.7 Ileus, unspecified (principal); K63.9 Disease of intestine, unspecified; K21.00 Gastro-esophageal reflux disease with esophagitis, without bleeding; K26.9 Duodenal ulcer, unspecified as acute or chronic, without hemorrhage or perforation; K31.84 Gastroparesis; R13.13 Dysphagia, pharyngeal phase; Z20.822 Contact with and (suspected) exposure to COVID-19; D64.9 Anemia, unspecified; D72.829 Elevated white blood cell count, unspecified; S72.142A Displaced intertrochanteric fracture of left femur, initial encounter for closed fracture; I25.10 Atherosclerotic heart disease of native coronary artery without angina pectoris; Z95.1 Presence of aortocoronary bypass graft; I10 Essential (primary) hypertension; F03.90 Unspecified dementia, unspecified severity, without behavioral disturbance, psychotic disturbance, mood disturbance, and anxiety; R93.3 Abnormal findings on diagnostic imaging of other parts of digestive tract; R91.8 Other nonspecific abnormal finding of lung field; G45.4 Transient global amnesia; N40.0 Benign prostatic hyperplasia without lower urinary tract symptoms; K21.9 Gastro-esophageal reflux disease without esophagitis; E78.5 Hyperlipidemia, unspecified; R32 Unspecified urinary incontinence; E66.3 Overweight; Z68.25 Body mass index [BMI] 25.0-25.9, adult; Z79.82 Long term (current) use of aspirin; Z79.1 Long term (current) use of non-steroidal anti-inflammatories (NSAID); Z79.899 Other long term (current) drug therapy
CPT/HCPCS: 43239; 36415; 71045; 78264; 80048; 80053; 81003; 82274; 82607; 82728; 82746; 83540; 83550; 83605; 84145; 84443; 85025; 85027; 86140; 87081; 87426; 92610; 92611; 96374; 96375; 97110; 97161; 97166; 97530; 97535; A9270; A9541; C9113; C9803; G0378; G0379; J0131; J1650; J2704; J2765; J3010; J7120

== ENCOUNTER 2023-02-23 19:56 | Observation (INO) | payer MEDICARE, SELFPAY ==
--- NOTE | ~2023-02-23 | XR_ITS ---
EXAMINATION: XR foot LT min 3V DATE: 02/23/2023 20:53 INDICATION: Left foot ulceration TECHNIQUE: Dorsoplantar, lateral, and oblique views of the left foot were obtained. COMPARISON: None. FINDINGS: There is a soft tissue swelling and ulceration overlying the posterior aspect of the calcan eus. The underlying calcaneus appears normal. Calcified atherosclerosis is noted. There is no fractur e. There is moderate osteoarthritis of multiple interphalangeal joints. IMPRESSION: 1. Posterior soft tissue swelling and ulceration overlying the calcaneus without acute osseous abnorm ality. 2. Polyarticular osteoarthritis. Reviewed, dictated and finalized at location F. IMPRESSION: 1. Posterior soft tissue swelling and ulceration overlying the calcaneus withou t acute osseous abnormality. 2. Polyarticular osteoarthritis.
[2023-02-23 19:57] VITALS: BP 156/77; PULSE 98; RESP 18; TEMP 37; O2SAT 97
--- NOTE | 2023-02-23 20:20 | ED.EXTPRO ---
HPI - Extremity Problem General Chief complaint: Wound/Laceration Stated complaint: Left Foot Source: patient and family Mode of arrival: wheelchair History of Present Illness HPI Narrative: 82-year-old white male with history of dementia, hypertension, hyperlipidemia, coronary artery disease, recently fractured his left hip in December, was operated on at [facility], then was recently admitted here apparently for an ileus, discharged to a custodial, then discharged to home approximately 6 or 7 days ago. He is brought in now by his caregiver with concern that he has developed a bedsore on his left heel. There has not been any apparent fever or chills, there have been no sacral or coccygeal bedsores, this is the 1st 1 for this patient. There is no history of diabetes. The current caregiver is his grandson who has been caring for him 24 hours a day, and reports they have been able to arrange for the patient to stay with a professional care person at the end of the week, reports have a hospital bed set up, and he will not be the only caregiver. Patient has not had any complaints of chest pain, shortness a breath, nausea vomiting, abdominal pain, and has not complained of pain in the left heel Related Data Home Medications Medication Instructions Recorded Confirmed Adult Low Dose Aspirin 81 mg PO DAILY 01/07/23 02/23/23 lisinopril 20 mg tablet (Zestril) 20 mg PO DAILY 01/07/23 02/23/23 simvastatin 20 mg tablet (Zocor) 40 mg PO HS 01/07/23 02/23/23 zspdymqejnvy-ufhkckin-vktyvu tablet 1 tablet PO DAILY 02/23/23 02/23/23 Allergies Allergy/AdvReac Type Severity Reaction Status Date / Time Sulfa (Sulfonamide Allergy Intermediate Urticaria Verified 01/12/23 14:27 Antibiotics) [facility] Past Medical History Medical History Benign prostatic hyperplasia Coronary artery disease Dementia Gastroesophageal reflux disease Hyperlipidemia Hypertension Urinary incontinence Surgical History Surgical History History of appendectomy History of coronary artery bypass graft History of open reduction and internal fixation (ORIF) procedure (12/30/22) Repair left hip fracture. Family History Family History Son Cancer Social History Social History Social History: Surrogate medical decision maker: Davon Peacock radha. Code status: Full code. Smoking packs per day: 1 Smoking cigarettes per day: 20.0 Years smoked: 30 Smoking pack-years: 30.00 Smoking status: Never smoker Alcohol intake: never Substance use: never Substance use type: does not use Lack of Transportation: No Lack of Food: Never True Current Housing: I Have Housing Concerned About Future Housing: No Difficulty Paying Gas/Electric Bills: No Difficulty Paying for Meds: No Currently Unemployed: No Education: High School Diploma/GED Difficulty w/ Childcare or Family Care: No Additional living arrangements comments: Lives [place] [facility] with his dogNeal. 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 Spiritual care concerns: No Exam Narrative: pleasant, elderly appearing, appropriately interactive, no acute distress, oriented to name, age, hospital Const: General: cooperative, comfortable, no acute distress, well developed, alert and awake HENMT: Head: normal to inspection, normocephalic and atraumatic Ears: external ears normal Face/Nose/Sinus: Normal external nose present, Normal nares present, Normal nasal mucous membranes and turbinates present and normal facial exam Face and sinus: normal facial exam Mouth: Yes Normal oral and palatal mucosa present, Yes lip normal, Yes tongue normal, Yes oropharynx normal and Yes moist mucous membranes Throat: pos
[2023-02-23 20:45] LABS: Basophils Absolute Auto 0.06 K/mm3 (0.00-0.10); Basophils Percent Auto 0.5 % (0.0-1.0); Eosinophils Absolute Auto 0.95 K/mm3 (0.02-0.50); Eosinophils Percent Auto 7.1 % (1.0-6.0); Hematocrit 32.4 % (37.0-46.0); Hemoglobin 10.1 g/dL (12.4-15.3); Immature Granulocyte Absolute 0.07 K/mm3 (0.00-0.00); Immature Granulocyte Percent A 0.5 % (0.0-0.0); Lymphocytes Absolute Auto 1.13 K/mm3 (1.10-4.50); Lymphocytes Percent Auto 8.5 % (18.0-42.0); Mean Corpuscular HGB Conc 31.2 g/dL (32.0-36.0); Mean Corpuscular Hemoglobin 29.3 pg (27.0-31.0); Mean Corpuscular Volume 93.9 fL (78.0-102.0); Mean Platelet Volume 9.8 fl (8.7-11.0); Monocytes Absolute Auto 0.66 K/mm3 (0.10-0.90); Neutrophils Absolute Auto 10.5 K/mm3 (1.7-7.2); Neutrophils Percent Auto 78.4 % (50.0-70.0); Platelet Count Result 363 K/mm3 (150-420); Red Blood Count 3.45 M/mm3 (4.70-6.10); Red Cell Distribution Width 15.7 % (11.6-14.4); White Blood Count 13.3 K/mm3 (4.8-10.8)
[2023-02-23 21:00] LABS: INR 0.9; Partial Thromboplastin Time 29.6 SEC (23.90-30.70); Prothrombin Time 10.3 Seconds (9.50-12.10)
[2023-02-23 21:02] LABS: Alanine Aminotransferase 26 U/L (16-63); Albumin Level 2.5 g/dL (3.4-5.0); Alkaline Phosphatase 119 U/L (46-116); Anion Gap 9 mmol/L (8-16); Aspartate Amino Transferase 17 U/L (15-37); Bilirubin,Total 0.5 mg/dL (0.00-1.00); Blood Urea Nitrogen 20 mg/dL (7-18); Calcium 8.5 mg/dL (8.5-10.1); Carbon Dioxide 29 mmol/L (21-32); Chloride 101 mmol/L (98-108); Estimated CRCL calculation 66 ml/min; Estimated Glomerular Filt Rate > 60; Glucose 203 mg/dL (70-99); Osmolality Calculated 296 mOsm/kg (285-295); Potassium 3.8 mmol/L (3.5-5.1); Sodium 139 mmol/L (136-145); Total Protein 6.7 g/dL (6.4-8.2)
[2023-02-23 21:04] LABS: CRP 3.6 mg/dL (0.0-0.9)
[2023-02-23 21:16] VITALS: BP 164/66; PULSE 75; RESP 20; O2SAT 97
--- NOTE | 2023-02-23 21:49 | PC.NURSE ---
Pt cleaned of dried stool and pt incont of urine in his depend, new diaper placed and pt. foot wound dressg dry and intact and elevated on pillow.
[2023-02-23 21:59] LABS: Erythrocyte Sedimentation Rate 52 mm/hr (0-20)
[2023-02-23 22:20] VITALS: BP 155/62; PULSE 78; RESP 18; TEMP 37; O2SAT 97
[2023-02-23] MEDS: CEFEPIME 2 GM/NS 50 ML 2 GM/50 ML BAG IVPB (22:29)
[2023-02-23 22:40] VITALS: BMI 24.9
--- NOTE | 2023-02-23 22:40 | ADMGEN ---
This patient, Tonio Moreira, was admitted to 2nd Floor Room 208-2. Patient oriented to hospital policies and general routines including ID bracelet, bed and alarms, visiting hours, pain management, procedures, bathroom and other care routines, personal items, smoking policy, room service/diet, and visiting hours. Information on how to activate the Rapid Response Team has been discussed. Patient are encouraged to report perceived risks to care and to ask questions if they do not understand what they are told or what they should do.
[2023-02-23] MEDS: VANCOMYCIN 1,250 MG/NS 250 ML 1,250 MG/250 ML BAG 200 MG IVPB (23:03)
[2023-02-23] MEDS: SIMVASTATIN 10 MG TABLET 40 MG PO (23:04)
[2023-02-23] MEDS: MELATONIN 5 MG TABLET PO (23:07)
[2023-02-23] MEDS: ACETAMINOPHEN 325 MG TABLET 650 MG PO (23:07)
[2023-02-23 23:36] VITALS: PULSE 78; RESP 18; O2SAT 97
[2023-02-24] VITALS: BP 175/61; PULSE 82; RESP 22; TEMP 36.6; O2SAT 98
[2023-02-24 06:00] VITALS: BP 175/61; PULSE 81; RESP 22; TEMP 36.6; O2SAT 98
[2023-02-24 07:45] VITALS: BP 165/73; PULSE 81; RESP 16; TEMP 36.4; O2SAT 96
[2023-02-24] MEDS: lisinopriL 20 MG TABLET PO (08:50)
[2023-02-24] MEDS: ASPIRIN 81 MG CHEWABLE TABLET PO (08:50)
[2023-02-24] MEDS: CEFEPIME 1 GM/NS 50 ML 1 GM/50 ML BAG IVPB ×2 (08:50→21:07)
[2023-02-24] MEDS: ENOXAPARIN 30 MG/0.3 ML SYRINGE SUB-Q (08:50)
[2023-02-24 10:17] LABS: Anion Gap 9 mmol/L (8-16); Blood Urea Nitrogen 23 mg/dL (7-18); Calcium 8.6 mg/dL (8.5-10.1); Carbon Dioxide 25 mmol/L (21-32); Chloride 103 mmol/L (98-108); Estimated CRCL calculation 70 ml/min; Estimated Glomerular Filt Rate > 60; Glucose 172 mg/dL (70-99); Osmolality Calculated 291 mOsm/kg (285-295); Potassium 3.9 mmol/L (3.5-5.1); Sodium 137 mmol/L (136-145)
[2023-02-24 10:23] LABS: Hematocrit 29.5 % (37.0-46.0); Hemoglobin 9.2 g/dL (12.4-15.3); Mean Corpuscular HGB Conc 31.2 g/dL (32.0-36.0); Mean Corpuscular Hemoglobin 29.3 pg (27.0-31.0); Mean Corpuscular Volume 93.9 fL (78.0-102.0); Mean Platelet Volume 9.7 fl (8.7-11.0); Platelet Count Result 309 K/mm3 (150-420); Red Blood Count 3.14 M/mm3 (4.70-6.10); Red Cell Distribution Width 15.7 % (11.6-14.4); White Blood Count 13.3 K/mm3 (4.8-10.8)
--- NOTE | 2023-02-24 11:55 | PM.IMHP ---
H&P: HPI History of Present Illness Date/Time: 02/24/23 11:55 Chief Complaint: Foot Ulcer, weakness Narrative: This is a 82 year old male that presented to the emergency room due to a left heel ulcer that is worsening . Patient is staying in a hotel with grandson as his wound is now smelling foul. Patient has been home from a skilled nursing for about 2 weeks as his grandson is attempting to care for him. Patient has a pmh of htn, HLd, GERD, urinary incontience . Patient informs me he is able to ambulate a few steps but not much. Patient has been admitted as he may need more care and he is in need of wound care for possible debridement. Patient has been placed on some IV antibiotic this is a chronic wound and not a new wound and there does not seems to be a acute infection but a chronic one. Cultures were obtained in the Ed and patient will remain on IV antibiotic until placement can be placed and possible wound care set. Review of Systems Review of Systems: wound care left heel. All systems reviewed & are unremarkable except as noted in HPI and below PMFSH Past Medical History Medical History Benign prostatic hyperplasia Coronary artery disease Dementia Gastroesophageal reflux disease Hyperlipidemia Hypertension Urinary incontinence Surgical History Surgical History History of appendectomy History of coronary artery bypass graft History of open reduction and internal fixation (ORIF) procedure (12/30/22) Repair left hip fracture. Family History Family History Son Cancer Social History Social History Social History: Surrogate medical decision maker: radha Combs. Code status: Full code. Smoking packs per day: 1 Smoking cigarettes per day: 20.0 Years smoked: 30 Smoking pack-years: 30.00 Smoking status: Former smoker Tobacco type: cigarettes Second hand tobacco smoke exposure: No Smoking end date: 07/29/99 Alcohol intake: never Substance use: never Substance use type: does not use Lack of Transportation: No Lack of Food: Never True Current Housing: I Have Housing Concerned About Future Housing: No Difficulty Paying Gas/Electric Bills: No Difficulty Paying for Meds: No Currently Unemployed: No Education: High School Diploma/GED Difficulty w/ Childcare or Family Care: No Additional living arrangements comments: Lives in [facility] with his dogNeal. 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 Spiritual care concerns: No Meds Home Medications and Allergies Home Medications Medication Instructions Recorded Confirmed Type Adult Low Dose Aspirin 81 mg PO DAILY 01/07/23 02/23/23 History lisinopril 20 mg tablet (Zestril) 20 mg PO DAILY 01/07/23 02/23/23 History simvastatin 20 mg tablet (Zocor) 40 mg PO HS 01/07/23 02/23/23 History urbwnqijebyw-eiwsnmlk-cjevkn tablet 1 tablet PO DAILY 02/23/23 02/23/23 History Allergies Allergy/AdvReac Type Severity Reaction Status Date / Time Sulfa (Sulfonamide Allergy Intermediate Urticaria Verified 01/12/23 14:27 Antibiotics) Vital Signs Vital Signs - 24 hr 02/23/23 19:57 02/23/23 21:16 02/23/23 22:20 Temperature 98.6 F 98.6 F Pulse Rate 98 75 78 Respiratory Rate 18 20 18 Blood Pressure 156/77 H 164/66 H 155/62 H Pulse Oximetry 97 97 97 Oxygen Delivery Room Air Room Air Room Air 02/23/23 23:36 02/24/23 00:00 02/24/23 06:00 Temperature 97.9 F 97.9 F Pulse Rate 78 82 81 Respiratory Rate 18 22 H 22 H Blood Pressure 175/61 H 175/61 H Pulse Oximetry 97 98 98 Oxygen Delivery Room Air Room Air Room Air 02/24/23 07:45 Temperature 97.6 F Pulse Rate 81 Respiratory Rate 16 Blood Pressure 165/73 H Pulse Oximetry 96 Oxygen Delivery Room Air
[2023-02-24 16:00] VITALS: BP 171/75; PULSE 84; RESP 16; TEMP 36.9; O2SAT 95
[2023-02-24 16:49] LABS: Appearance Urine Clear (Clear); Bilirubin Urine Negative (Negative); Blood Urine Negative (Negative); Color Urine Yellow (Yellow); Glucose Urine UA Negative (Negative); Ketones Urine Negative (Negative); Leukocyte Esterase Ur Negative LEU/UL (Negative); Nitrate Urine Negative (Negative); Protein Urine Negative (Negative); Specific Grav Ur 1.025 (1.010-1.020)
[2023-02-24 16:50] LABS: Add Urine Microscopic? NO
[2023-02-24] MEDS: MELATONIN 5 MG TABLET PO (21:08)
[2023-02-24] MEDS: SIMVASTATIN 10 MG TABLET 40 MG PO (21:08)
[2023-02-25] VITALS: BP 187/74; PULSE 83; RESP 18; TEMP 37.1; O2SAT 93
[2023-02-25 08:00] VITALS: BP 158/78; PULSE 73; RESP 14; TEMP 36.6; O2SAT 14
[2023-02-25] MEDS: ASPIRIN 81 MG CHEWABLE TABLET PO (08:20)
[2023-02-25 08:47] LABS: Hematocrit 31.3 % (37.0-46.0); Hemoglobin 9.7 g/dL (12.4-15.3); Mean Corpuscular Hemoglobin 28.8 pg (27.0-31.0); Mean Corpuscular Volume 92.9 fL (78.0-102.0); Mean Platelet Volume 9.9 fl (8.7-11.0); Platelet Count Result 298 K/mm3 (150-420); Red Blood Count 3.37 M/mm3 (4.70-6.10); Red Cell Distribution Width 15.4 % (11.6-14.4); White Blood Count 11.7 K/mm3 (4.8-10.8)
[2023-02-25 08:57] LABS: Anion Gap 5 mmol/L (8-16); Blood Urea Nitrogen 20 mg/dL (7-18); Calcium 8.6 mg/dL (8.5-10.1); Carbon Dioxide 30 mmol/L (21-32); Chloride 100 mmol/L (98-108); Estimated CRCL calculation 73 ml/min; Estimated Glomerular Filt Rate > 60; Glucose 139 mg/dL (70-99); Osmolality Calculated 284 mOsm/kg (285-295); Sodium 135 mmol/L (136-145)
[2023-02-25] MEDS: CEFEPIME 1 GM/NS 50 ML 1 GM/50 ML BAG IVPB ×2 (09:17→21:03)
[2023-02-25] MEDS: lisinopriL 20 MG TABLET PO (09:18)
[2023-02-25] MEDS: ENOXAPARIN 30 MG/0.3 ML SYRINGE SUB-Q (09:18)
[2023-02-25 16:00] VITALS: BP 124/84; PULSE 78; RESP 20; TEMP 36.1; O2SAT 94
[2023-02-25] MEDS: SACCHAROMYCES BOULARDII 250 MG CAPSULE PO (16:48)
[2023-02-25 19:37] VITALS: PULSE 84; RESP 20; O2SAT 97
[2023-02-25] MEDS: SIMVASTATIN 10 MG TABLET 40 MG PO (20:40)
[2023-02-25] MEDS: MELATONIN 5 MG TABLET PO (20:41)
--- NOTE | 2023-02-25 21:22 | PC.NURSE ---
Pt IV site noted red and puffy, infiltrated, new site started. Pt changed of wet diaper and noted small soft BM in diaper, pt assists in turning and repositioning. Feet and legs elevated off bed.
[2023-02-25 23:50] VITALS: BP 156/67; PULSE 71; RESP 18; TEMP 36.6; O2SAT 95
[2023-02-26 08:00] VITALS: BP 145/72; PULSE 78; RESP 14; TEMP 36.6; O2SAT 95
[2023-02-26] MEDS: ASPIRIN 81 MG CHEWABLE TABLET PO (08:52)
[2023-02-26] MEDS: lisinopriL 20 MG TABLET PO (08:52)
[2023-02-26] MEDS: ENOXAPARIN 30 MG/0.3 ML SYRINGE SUB-Q (08:52)
[2023-02-26] MEDS: SACCHAROMYCES BOULARDII 250 MG CAPSULE PO ×2 (08:52→17:14)
[2023-02-26] MEDS: CEFEPIME 1 GM/NS 50 ML 1 GM/50 ML BAG IVPB ×2 (08:53→21:34)
--- NOTE | 2023-02-26 12:23 | WPDPN ---
Progress Note: A&P Assessment and Plan (1) Decubitus ulcer, stage 3 with infection: Code(s): L89.93 - Pressure ulcer of unspecified site, stage 3; L08.9 - Local infection of the skin and subcutaneous tissue, unspecified Status: Acute Assessment and Plan: continue with antibiotics wound care consult daily dressing changes awaiting placement for safe return (2) Nausea and vomiting: Code(s): R11.2 - Nausea with vomiting, unspecified Status: Acute Assessment and Plan: resolved (3) Leukocytosis: Code(s): D72.829 - Elevated white blood cell count, unspecified Status: Acute Assessment and Plan: antibiotics wound care resolving pt has remained afebrile. (4) Dementia: Qualifiers: Alzheimer's disease onset: late onset Dementia behavioral or psychological symptom: without behavioral, psychotic, or mood disturbance or anxiety Dementia severity: moderate Dementia type: Alzheimer's Qualified Code(s): G30.1 - Alzheimer's disease with late onset; F02.B0 - Dementia in other diseases classified elsewhere, moderate, without behavioral disturbance, psychotic disturbance, mood disturbance, and anxiety Code(s): F03.90 - Unspecified dementia, unspecified severity, without behavioral disturbance, psychotic disturbance, mood disturbance, and anxiety Status: Chronic Assessment and Plan: Stable Subjective Date/time seen: 02/26/23 12:23 Interval history: Patient in the bed resting discussion with patient he states he is feeling good today. Patient continues to stand pivot or sit to stand machine to get up. Heel in being changed junior with the plan for wound clinic to see and possible debride wound. Patient has been placed on medication to help debride the wound and we are currently waiting on placement for patient so he can have a safe discharge. Patient continue to remain on antibiotic and he has no complaints of pain unless you touch his foot. We will repeat labs tomorrow at this time labs are improving and have stablized. Patient has remained afebrile, eating without any difficulties. Exam Narrative: GENERAL:Well-appearing,Disheveled and in no acute distress. HEAD:Normocephalic, atraumatic. EYES: PERRLA ENT: Nares clear, no rhinorrhea or epistaxis. Mucous membranes moist. CHEST: Clear to auscultation. No respiratory distress. HEART: Regular rate and rhythm. Normal peripheral pulses. ABDOMEN: Soft, nontender, nondistended, normal active bowel sounds. EXTREMITIES: decreased range of motion. 1+edema. SKIN: Warm, dry, no rash. Left heel open and necrotic with foul smelling draining with some maceration noted surrounding area. NEURO: No focal deficits. Alert and oriented x3. Const: General: cooperative, comfortable, no acute distress, well developed, alert and awake HENMT: Head: normal to inspection, normocephalic and atraumatic Ears: external ears normal Face/Nose/Sinus: Normal external nose present, Normal nares present, Normal nasal mucous membranes and turbinates present and normal facial exam Face and sinus: normal facial exam Mouth: Yes Normal oral and palatal mucosa present, Yes lip normal, Yes tongue normal, Yes oropharynx normal and Yes moist mucous membranes Throat: posterior oropharynx normal Eyes: General: appearance normal, both eyes and all related structures Alignment and Position: alignment normal and position normal Periorbital: periorbital findings normal Eyelids: eyelids normal Conjunctivae: conjunctivae normal Sclera: sclerae normal Cornea: corneas normal Pupils: Equal, round and reactive pupils present EOM: EOMs intact bilaterally Neck: Neck: normal visual inspection, full ROM and no lymphadenopathy Chest: Chest palpation & inspection: normal inspection of the chest Resp: Effort & Inspection: normal respiratory effort, able to speak in complete sentences, no audible wheezes, no respiratory distress and no use
[2023-02-26 16:35] VITALS: BP 159/74; PULSE 81; RESP 18; TEMP 37; O2SAT 96
[2023-02-26] MEDS: MELATONIN 5 MG TABLET PO (21:35)
[2023-02-26] MEDS: SIMVASTATIN 10 MG TABLET 40 MG PO (21:35)
[2023-02-27] VITALS: BP 161/64; PULSE 74; RESP 16; TEMP 37; O2SAT 95
[2023-02-27 07:38] VITALS: BP 145/90; PULSE 72; RESP 14; TEMP 36.8; O2SAT 94
[2023-02-27] MEDS: CEFEPIME 1 GM/NS 50 ML 1 GM/50 ML BAG IVPB (08:45)
[2023-02-27] MEDS: ASPIRIN 81 MG CHEWABLE TABLET PO (08:53)
[2023-02-27] MEDS: SACCHAROMYCES BOULARDII 250 MG CAPSULE PO (08:53)
[2023-02-27] MEDS: lisinopriL 20 MG TABLET PO (08:53)
[2023-02-27] MEDS: ENOXAPARIN 30 MG/0.3 ML SYRINGE SUB-Q (08:53)
--- NOTE | 2023-02-27 09:44 | PM.DS ---
DS: Admitting Diagnosis Discharge Date 02/27/2023 Admitting Diagnosis Wound Infection , DS: Discharge Diagnosis Discharge Diagnosis (1) Decubitus ulcer, stage 3 with infection: Code(s): L89.93 - Pressure ulcer of unspecified site, stage 3; L08.9 - Local infection of the skin and subcutaneous tissue, unspecified Status: Acute Assessment and Plan: continue with antibiotics wound care consult daily dressing changes awaiting placement for safe return (2) Nausea and vomiting: Code(s): R11.2 - Nausea with vomiting, unspecified Status: Acute Assessment and Plan: resolved (3) Leukocytosis: Code(s): D72.829 - Elevated white blood cell count, unspecified Status: Acute Assessment and Plan: antibiotics wound care resolving pt has remained afebrile. (4) Dementia: Qualifiers: Alzheimer's disease onset: late onset Dementia behavioral or psychological symptom: without behavioral, psychotic, or mood disturbance or anxiety Dementia severity: moderate Dementia type: Alzheimer's Qualified Code(s): G30.1 - Alzheimer's disease with late onset; F02.B0 - Dementia in other diseases classified elsewhere, moderate, without behavioral disturbance, psychotic disturbance, mood disturbance, and anxiety Code(s): F03.90 - Unspecified dementia, unspecified severity, without behavioral disturbance, psychotic disturbance, mood disturbance, and anxiety Status: Chronic Assessment and Plan: Stable DS: Summary Hospital Course Reason for hospitalization: wound infection Hospital Course: patient was admitted due to worsening left heel ulcer that was affected with foul-smelling drainage. Patient has been seen in [facility] with his grandson due to inability to get into the house due to some many stairs. Patient was here and treated with IV antibiotics and wound care. Patient has a past medical history of hypertension, hyperlipidemia, GERD, urinary incontinence, and decreased mobility. Patient was seen by Physical therapy not able to do much patient is in need of placement [facility] which [facility] been [facility] cultures came back and initially patient was started on clindamycin when he was sent to the penitentiary I discontinued that due to the cultures in speaking to Infectious Disease pharmacist and he has been switched to Augmentin as this is better suited for the infection. Patient has remained stable while he is here in drinking without any difficulty no nausea vomiting and/or diarrhea and has remained fever free patient's vitals on discharge was 145/90 pulse was 72, respirations 14, temperature was 98.3?, and 94% on room air he will continue with physical therapy and occupational therapy at the [facility] and dressing change will be Norma as well as he will be seen at a wound clinic. called and spoke with Roya at [facility] informed her to cancel clindamycin and I was going to call in Augmentin DS Time Spent with Patient Time attestation: Total time spent providing and/or coordinating discharge services: Exam Narrative: GENERAL:Well-appearing,Disheveled and in no acute distress. HEAD:Normocephalic, atraumatic. EYES: PERRLA ENT: Nares clear, no rhinorrhea or epistaxis. Mucous membranes moist. CHEST: Clear to auscultation. No respiratory distress. HEART: Regular rate and rhythm. Normal peripheral pulses. ABDOMEN: Soft, nontender, nondistended, normal active bowel sounds. EXTREMITIES: decreased range of motion. 1+edema. SKIN: Warm, dry, no rash. Left heel open and necrotic with foul smelling draining with some maceration noted surrounding area. NEURO: No focal deficits. Alert and oriented x3. Const: General: cooperative, comfortable, no acute distress, well developed, alert and awake HENMT: Head: normal to inspection, normocephalic and atraumatic Ears: external ears normal Face/Nose/Sinus: Normal external nose present, Normal nares present, Norm
--- NOTE | 2023-02-27 10:51 | PC.NURSE ---
Pt discharged to [facility] in [facility]. RN called report to Viv and pt information faxed to SNF. Pt is alert X3 and willing to go to the SNF. Instructions given to Viv regarding Left heel decub and dressing changes, pt diet, transfers with a shahram steady and 2 people, medications and pain control. Pt taken to the SNF van per WC and assisted into the van.
--- NOTE | 2023-03-02 10:39 | PC.NURSE ---
assisted nurse states they received and understood the discharge instructions.
--- NOTE | 2023-03-13 12:14 | WPDPN ---
Progress Note: A&P Assessment and Plan (1) Decubitus ulcer, stage 3 with infection: Code(s): L89.93 - Pressure ulcer of unspecified site, stage 3; L08.9 - Local infection of the skin and subcutaneous tissue, unspecified Status: Acute Assessment and Plan: continue with antibiotics wound care consult daily dressing changes awaiting placement for safe return (2) Nausea and vomiting: Code(s): R11.2 - Nausea with vomiting, unspecified Status: Acute Assessment and Plan: resolved (3) Leukocytosis: Code(s): D72.829 - Elevated white blood cell count, unspecified Status: Acute Assessment and Plan: antibiotics wound care resolving pt has remained afebrile. (4) Dementia: Qualifiers: Alzheimer's disease onset: late onset Dementia behavioral or psychological symptom: without behavioral, psychotic, or mood disturbance or anxiety Dementia severity: moderate Dementia type: Alzheimer's Qualified Code(s): G30.1 - Alzheimer's disease with late onset; F02.B0 - Dementia in other diseases classified elsewhere, moderate, without behavioral disturbance, psychotic disturbance, mood disturbance, and anxiety Code(s): F03.90 - Unspecified dementia, unspecified severity, without behavioral disturbance, psychotic disturbance, mood disturbance, and anxiety Status: Chronic Assessment and Plan: Stable Subjective Date/time seen: 02/25/23 12:14 Interval history: Patient in the bed resting discussion with patient he states he is feeling ok today Heel in being changed daily with the plan for wound clinic to see and possible debrided wound. Patient continue to remain on antibiotic and he has no complaints of pain unless you touch his foot. We will repeat labs tomorrow at this time labs are improving and have stabilized. Patient has remained afebrile, eating without any difficulties. Exam Narrative: GENERAL:Well-appearing,Disheveled and in no acute distress. HEAD:Normocephalic, atraumatic. EYES: PERRLA ENT: Nares clear, no rhinorrhea or epistaxis. Mucous membranes moist. CHEST: Clear to auscultation. No respiratory distress. HEART: Regular rate and rhythm. Normal peripheral pulses. ABDOMEN: Soft, nontender, nondistended, normal active bowel sounds. EXTREMITIES: decreased range of motion. 1+edema. SKIN: Warm, dry, no rash. Left heel open and necrotic with foul smelling draining with some maceration noted surrounding area. NEURO: No focal deficits. Alert and oriented x3. Const: General: cooperative, comfortable, no acute distress, well developed, alert and awake HENMT: Head: normal to inspection, normocephalic and atraumatic Ears: external ears normal Face/Nose/Sinus: Normal external nose present, Normal nares present, Normal nasal mucous membranes and turbinates present and normal facial exam Face and sinus: normal facial exam Mouth: Yes Normal oral and palatal mucosa present, Yes lip normal, Yes tongue normal, Yes oropharynx normal and Yes moist mucous membranes Throat: posterior oropharynx normal Eyes: General: appearance normal, both eyes and all related structures Alignment and Position: alignment normal and position normal Periorbital: periorbital findings normal Eyelids: eyelids normal Conjunctivae: conjunctivae normal Sclera: sclerae normal Cornea: corneas normal Pupils: Equal, round and reactive pupils present EOM: EOMs intact bilaterally Neck: Neck: normal visual inspection, full ROM and no lymphadenopathy Chest: Chest palpation & inspection: normal inspection of the chest Resp: Effort & Inspection: normal respiratory effort, able to speak in complete sentences, no audible wheezes, no respiratory distress and no use of accessory muscles Cardio: Jugular venous distension: no JVD Rate: regular rate Rhythm: regular rhythm GI: Inspection: normal to inspection Skin: General skin exam: normal color, elasticity normal and turgo
== END 2023-02-27 10:05 ==
LOC: CHSED 22:10 → CHS2ND 22:12
PROVIDERS: Nurse Practitioner Family; Admitting Provider Internal Medicine; Emergency Provider Emergency Medicine; Visit Provider Internal Medicine
DX: L89.623 Pressure ulcer of left heel, stage 3 (principal); L08.9 Local infection of the skin and subcutaneous tissue, unspecified; I10 Essential (primary) hypertension; I25.10 Atherosclerotic heart disease of native coronary artery without angina pectoris; E78.5 Hyperlipidemia, unspecified; K21.9 Gastro-esophageal reflux disease without esophagitis; N40.0 Benign prostatic hyperplasia without lower urinary tract symptoms; G30.1 Alzheimer's disease with late onset; F02.80 Dementia in other diseases classified elsewhere, unspecified severity, without behavioral disturbance, psychotic disturbance, mood disturbance, and anxiety; Z95.1 Presence of aortocoronary bypass graft
CPT/HCPCS: 36415; 73630; 80048; 80053; 81003; 85025; 85027; 85610; 85652; 85730; 86140; 87040; 87070; 87205; 96365; 96366; 96367; 96372; 97161; 97165; 97530; 97535; 99285; A9270; G0378; J0692; J1650; J3370